=== PATIENT | female | born 1960 | race Caucasian/White ===

== ENCOUNTER 2020-08-12 20:00 | Inpatient (IN) | payer BC ==
--- NOTE | 2020-08-12 20:52 | EDM.PDOC ---
ED HPI GENERAL MEDICAL PROBLEM - General Chief Complaint: Abdominal Pain Stated Complaint: STOMACH PAIN Time Seen by Provider: 08/12/20 20:28 Source of Information: Reports: Patient, Family ( + daughter) History Limitations: Reports: No Limitations - History of Present Illness INITIAL COMMENTS - FREE TEXT/NARRATIVE: Mrs. Barbosa is a very pleasant 59-year-old woman who now presents to the ED concerned that she may have a small bowel obstruction. She states that she was diagnosed with a SBO on 07/28/2020. She states that she was admitted to [facility], where she was treated with an NG tube, being discharged home on 07/30/2020. She states that this was the first time that she had ever been diagnosed with a SBO, but she suspects she may have had undiagnosed episodes previously. She states that she started feeling gassy around noon today. She states that a ventral hernia that she has started pooching out and feeling hard. She developed sharp periumbilical pain around 16:00 this afternoon, which has been coming and going about every 5 to 10 minutes. She has had nausea, but no vomiting. No constipation or diarrhea. She states that she had a small BM this morning, but nothing since. She has not had any flatus since this afternoon. No recent fever. Here in the ED, the patient's initial BP is found to be elevated 166/73, otherwise, she is hemodynamically stable, afebrile, saturating 97% on room air. She states that she is currently asymptomatic, and she appears to be quite comfortable, in no acute distress. Between 07/30/2020 and this afternoon, the patient denies having a recent fever, chills, sore throat, ear pain, nasal or sinus congestion, cough, dyspnea, chest pain, palpitations, nausea, vomiting, constipation, diarrhea, abdominal pain, urinary symptoms, recent weight gain or weight loss, recent bloody bowel movements or black bowel movements, recent joint aches, headaches, or rashes. The patient's PCP is MATTEO Gutierres. Abdominal Pain Score (Numeric/FACES): 8 - Related Data Allergies Allergy/AdvReac Type Severity Reaction Status Date / Time amoxicillin Allergy Difficulty Verified 08/12/20 20:16 Breathing Sulfa (Sulfonamide Allergy Rash Verified 08/12/20 20:16 Antibiotics) Home Meds: Home Meds Cholecalciferol (Vitamin D3) [Vitamin D] 5,000 unit PO 08/12/20 [History] Multivit-Min/Iron/Folic Acid/K [Multi For Her Softgel] 1 each PO 08/12/20 [History] Venlafaxine [Effexor] 37.5 mg PO DAILY 08/12/20 [History] hydroCHLOROthiazide [Hydrochlorothiazide] 25 mg PO DAILY 08/12/20 [History] Past Medical History HEENT History: Reports: Impaired Vision Cardiovascular History: Reports: Blood Clots/VTE/DVT Gastrointestinal History: Reports: Bowel Obstruction, GERD Psychiatric History: Reports: Depression Endocrine/Metabolic History: Reports: Obesity/BMI 30+ Oncologic (Cancer) History: Reports: Uterine (s/p CTx, RTx, CHyst) - Infectious Disease History Infectious Disease History: Reports: Chicken Pox - Past Surgical History HEENT Surgical History: Reports: Oral Surgery (dental extractions) Female Surgical History: Reports: Hysterectomy (complete) Musculoskeletal Surgical History: Reports: Other (See Below) (Left bunionectomy) Social & Family History - Tobacco Use Tobacco Use Status *Q: Never Tobacco User - Caffeine Use Caffeine Use: Reports: Coffee - Alcohol Use Alcohol Use History: Yes Alcohol Use Frequency: Rarely - Recreational Drug Use Recreational Drug Use: No - Living Situation & Occupation Living situation: Reports: , with Spouse 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 ED EXAM, GI/ABD - Physical Exam Exam: See Below Exam Limited By: No Limitations General Appearance: Alert, WD/WN, No Apparent Distress Eyes: Bilateral: Normal Appearance, EOMI Ears: Normal External Exam, Hearing Grossly Normal Nose: Normal Inspection Throat/Mouth: Normal Inspection, Normal Lips, Normal Voice, No Airway Compromise Head: Atraumatic, Normocephalic Neck: Normal Inspection, Full Range of Motion Respiratory/Chest: No Respiratory Distress, Lungs Clear, Normal Breath Sounds, No Accessory Muscle Use Cardiovascular: Normal Peripheral Pulses, Regular Rate, Rhythm, No Gallop, No JVD, No Murmur, No Rub GI/Abdominal Exam: Normal Bowel Sounds (no rushes or tinkles), Soft, No Organomegaly, No Distention, No Abnormal Bruit, No Mass, Tender (Minimal, about a large ventral hernia) Back Exam: Normal Inspection, Full Range of Motion, NT Extremities: Normal Inspection, Normal Range of Motion, Normal Capillary Refill Neurological: Alert, Oriented, Normal Cognition, No Motor/Sensory Deficits Psychiatric: Normal Affect Skin Exam: Warm, Dry, Intact, Normal Color, No Rash Course - Vital Signs Last Recorded V/S: Last Vital Signs Temp 36.6 C 08/13/20 01:52 Pulse 59 L 08/13/20 01:52 Resp 16 08/13/20 01:52 BP 146/92 H 08/13/20 01:52 Pulse Ox 97 08/13/20 01:52 - Orders/Labs/Meds Orders: Active Orders 24 hr Category Date Time Status Gastrointestinal Tube Mgmt [RC] ASDIRECTED Care 08/12/20 23:49 Active Abdomen Pelvis w Cont [CT] Stat Exams 08/12/20 20:42 Taken Chest 1V-Tube Placement Chk NC [CR] Stat Exams 08/12/20 23:49 Taken Sodium Chloride 0.9% [Normal Saline] 1,000 ml Med 08/12/20 20:45 Active IV ASDIRECTED NG [Nasogastric Orogastric Tube Insertion] [OM.PC] Oth 08/12/20 23:49 Ordered Routine Medication Orders Hydromorphone HCl (Hydromorphone 0.5 Mg/0.5 Ml Syringe) 0.5 mg IV Q2H PRN PRN Reason: PAIN Sodium Chloride (Normal Saline) 1,000 mls @ 100 mls/hr IV ASDIRECTED ASHLEY Last Infusion: 08/13/20 06:05 Dose: 100 mls/hr Documented by: Admin: 08/13/20 06:04 Dose: 150 mls/hr Documented by: Infusion: 08/13/20 03:56 Dose: 150 mls/hr Documented by: Admin: 08/12/20 21:15 Dose: 150 mls/hr Documented by: FELI Ondansetron HCl (Ondansetron 4 Mg/2 Ml Sdv) 4 mg IV Q8H PRN PRN Reason: Nausea/Vomiting Labs: Laboratory Tests 08/12/20 08/12/20 08/13/20 Range/Units 21:00 21:00 00:22 WBC 7.39 (3.98-10.04) K/mm3 RBC 4.62 (3.98-5.22) M/mm3 Hgb 14.5 (11.2-15.7) gm/dl Hct 41.9 (34.1-44.9) % MCV 90.7 (79.4-94.8) fl MCH 31.4 (25.6-32.2) pg MCHC 34.6 (32.2-35.5) g/dl RDW Std Deviation 39.9 (36.4-46.3) fL Plt Count 149 L (182-369) K/mm3 MPV 12.4 H (9.4-12.3) fl Neutrophils % (Manual) 81 H (40-60) % Band Neutrophils % 0 (0-10) % Lymphocytes % (Manual) 16 L (20-40) % Atypical Lymphs % 0 % Monocytes % (Manual) 3 (2-10) % Eosinophils % (Manual) 0 L (0.7-5.8) % Basophils % (Manual) 0 L (0.1-1.2) Platelet Estimate Adequate RBC Morph Comment Normal Sodium 138 (136-145) mEq/L Potassium 3.6 (3.5-5.1) mEq/L Chloride 101 (98-107) mEq/L Carbon Dioxide 27 (21-32) mEq/L Anion Gap 13.6 (5-15) BUN 11 (7-18) mg/dL Creatinine 0.8 (0.55-1.02) mg/dL Est Cr Clr Drug Dosing 79.13 mL/min Estimated GFR (MDRD) > 60 (>60) mL/min BUN/Creatinine Ratio 13.8 L (14-18) Glucose 149 H (70-99) mg/dL Calcium 8.9 (8.5-10.1) mg/dL Total Bilirubin 1.1 H (0.2-1.0) mg/dL AST 41 H (15-37) U/L ALT 51 (14-59) U/L Alkaline Phosphatase 81 (46-116) U/L Total Protein 7.1 (6.4-8.2) g/dl Albumin 3.8 (3.4-5.0) g/dl Globulin 3.3 gm/dL Albumin/Globulin Ratio 1.2 (1-2) SARS-CoV-2 RNA (JAYA) Negative (NEGATIVE) Meds: Medications Generic Name Dose Route Start Last Admin Trade Name Freq PRN Reason Stop Dose Admin Hydromorphone HCl 0.5 mg 08/13/20 06:10 Hydromorphone 0.5 Mg/0.5 Ml Syringe IV Q2H PRN PAIN Sodium Chloride 1,000 mls @ 100 mls/hr 08/12/20 20:45 08/13/20 06:05 Normal Saline IV 100 mls/hr ASDIRECTED ASHLEY Infusion Ondansetron HCl 4 mg 08/13/20 06:11 Ondansetron 4 Mg/2 Ml Sdv IV Q8H PRN Nausea/Vomiting Discontinued Medications Generic Name Dose Route Start Last Admin Trade Name Freq PRN Reason Stop Dose Admin Hydromorphone HCl 0.5 mg 08/13/20 06:11 Hydromorphone 0.5 Mg/0.5 Ml Syringe IVPUSH Q2H PRN Pain - Re-Assessments/Exams Free Text/Narrative Re-Assessment/Exam: 08/12/20 20:49 As above, the patient was diagnosed with a SBO on 07/28/2020, successfully treated at [facility] with an NG tube, with the patient going home on 07/30/2020, only to redevelop similar symptoms of intermittent central abdominal pain with some nausea this afternoon. At present, she is asymptomatic, and her physical exam is grossly unremarkable, however, her history is concerning for another SBO, therefore I have ordered a work-up that includes some blood tests and a CT of the abdomen and pelvis with oral and IV contrast. She will be given IV fluid, however, at this time, she is declining an offer for both pain medication and antinausea medication. 08/12/20 22:08 The patient's CBC is remarkable for modest thrombocytopenia of 149,000, with the remainder of her CBC being unremarkable. Her CMP is remarkable for mild hyperglycemia of 149, a TBil slightly elevated at 1.1, and AST slightly elevated at 41, with an ALT normal at 51, and the remainder of her CMP being unremarkable. 08/12/20 23:44 CT of the abdomen and pelvis with oral and IV contrast is read by vRtang as: 1. Distal small bowel obstruction with large ventral hernia as above. 2. Remainder of findings described as above. The body of the report reads "Transition zone of small bowel obstruction appears to be within the abdomen without definite evidence of incarceration of bowel within hernia producing the small-bowel obstruction." 08/12/20 23:50 Test results discussed with the patient and her . As above, the patient appears to have a small bowel obstruction as the cause of her pain. I re commended placement of an NG tube and admission to the hospital. She agreed. She stated that she is not having pain at this time. 08/12/20 23:[address] Calderón, Hospitalist, at 23:51. He accepted the patient for admission to the Hospital. I will write bridge orders that will include consultation of Dr. Garcia in the morning. 08/13/20 00:39 Portable chest x-ray indicates the tip of the NG tube is in the stomach via the esophagus. Departure - Departure Time of Disposition: 23:55 Disposition: Admitted As Inpatient 66 Condition: Good Clinical Impression: Small bowel obstruction - Discharge Information *PRESCRIPTION DRUG MONITORING PROGRAM REVIEWED*: Not Applicable *COPY OF PRESCRIPTION DRUG MONITORING REPORT IN PATIENT CAITLYN: Not Applicable Sepsis Event Note (ED) - Evaluation Sepsis Screening Result: No Definite Risk - Focused Exam Vital Signs: Vital Signs Temp Pulse Resp BP Pulse Ox 08/12/20 20:20 36.5 C 73 18 166/73 H 97 - My Orders Last 24 Hours: My Active Orders 08/12/20 20:42 Abdomen Pelvis w Cont [CT] Stat 08/12/20 20:45 Sodium Chloride 0.9% [Normal Saline] 1,000 ml IV ASDIRECTED 08/12/20 23:49 Gastrointestinal Tube Mgmt [RC] ASDIRECTED Chest 1V-Tube Placement Chk NC [CR] Stat NG [Nasogastric Orogastric Tube Insertion] [OM.PC] Routine - Assessment/Plan Last 24 Hours: My Active Orders 08/12/20 20:42 Abdomen Pelvis w Cont [CT] Stat 08/12/20 20:45 Sodium Chloride 0.9% [Normal Saline] 1,000 ml IV ASDIRECTED 08/12/20 23:49 Gastrointestinal Tube Mgmt [RC] ASDIRECTED Chest 1V-Tube Placement Chk NC [CR] Stat NG [Nasogastric Orogastric Tube Insertion] [OM.PC] Routine
[2020-08-12] MEDS: Sodium Chloride 0.9% 1,000 ML IV SCH (21:15)
[2020-08-13] MEDS: Sodium Chloride 0.9% 1,000 ML IV SCH (06:04)
[2020-08-13] MEDS ORDERED: HYDROmorphone 0.5 MG/0.5 ML Syringe IV PRN (06:10)
[2020-08-13] MEDS ORDERED: Ondansetron 4 MG/2 ML SDV IV PRN (06:11)
[2020-08-13] MEDS ORDERED: HYDROmorphone 0.5 MG/0.5 ML Syringe IVPUSH PRN (06:11)
[2020-08-13] MEDS ORDERED: oxyCODONE 5 MG Tab PO PRN (08:50)
[2020-08-13] MEDS ORDERED: Acetaminophen 325 MG Tab PO PRN (08:50)
[2020-08-13] MEDS ORDERED: Morphine 2 MG/ML SYRINGE IVPUSH PRN (08:50)
[2020-08-13] MEDS ORDERED: Lactated Ringers 1,000 ML IV SCH (09:00)
--- NOTE | 2020-08-13 09:05 | PCM.HP.2 ---
H&P History of Present Illness - General Date of Service: 08/13/20 Admit Problem/Dx: Admission Diagnosis/Problem Admission Diagnosis/Problem Small bowel obstruction Source of Information: Patient - History of Present Illness Initial Comments - Free Text/Narative: Patient is a 59-year-old female with a history of hypertension and a history of small bowel obstruction who presented to the ER due to abdominal pain and nausea. As per patient, she started to have lower abdominal pain at about 2 PM yesterday afternoon which has been gradually worsening. The pain is intermittent, sharp in nature and 2-8 out of 10 in severity. She had a small bowel movement yesterday morning and watery bowel movements last night and this morning. She had small bowel obstruction on July 28, 2020 for which she was admitted to the hospital in [place] and discharged on July 30, 2020. During that time she was treated with NG tube to suction etc. In the ER, CT abdomen showed small bowel obstruction. When I saw this patient, other than the symptoms mentioned above, she denies headache, dizziness, chest pain, shortness of breath, fever, chills, or dysuria. She underwent hysterectomy 15 years ago because of uterine cancer for which she received chemo and radiation therapy. Abdominal Pain Score (Numeric/FACES): 2 - Related Data Allergies/Adverse Reactions: Allergies Allergy/AdvReac Type Severity Reaction Status Date / Time amoxicillin Allergy Difficulty Verified 08/12/20 20:16 Breathing Sulfa (Sulfonamide Allergy Rash Verified 08/12/20 20:16 Antibiotics) Home Medications: Home Meds Cholecalciferol (Vitamin D3) [Vitamin D] 5,000 unit PO 08/12/20 [History] Multivit-Min/Iron/Folic Acid/K [Multi For Her Softgel] 1 each PO 08/12/20 [History] Venlafaxine [Effexor] 37.5 mg PO DAILY 08/12/20 [History] hydroCHLOROthiazide [Hydrochlorothiazide] 25 mg PO DAILY 08/12/20 [History] Past Medical History HEENT History: Reports: Impaired Vision, Other (See Below) Other HEENT History: Wears glasses Cardiovascular History: Reports: Blood Clots/VTE/DVT Respiratory History: Reports: None Gastrointestinal History: Reports: Bowel Obstruction, GERD Other Gastrointestinal History: small bowel obstruction Genitourinary History: Reports: None [employer] 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[employer]IC History: Reports: Musculoskeletal History: Reports: None Neurological History: Reports: None Psychiatric History: Reports: Depression Endocrine/Metabolic History: Reports: Obesity/BMI 30+ Hematologic History: Reports: None Immunologic History: Reports: None Oncologic (Cancer) History: Reports: Uterine Other Oncologic History: 14 years ago Dermatologic History: Reports: None - Infectious Disease History Infectious Disease History: Reports: Chicken Pox - Past Surgical History Head Surgeries/Procedures: Reports: None HEENT Surgical History: Reports: Oral Surgery GI Surgical History: Reports: None, Hernia, Abdominal Female Surgical History: Reports: Hysterectomy Musculoskeletal Surgical History: Reports: Other (See Below) Social & Family History - Family History Family Medical History: No Pertinent Family History (Denies genetic diseases in family) Cardiac: Reports: Hypertension Endocrine/Metabolic: Reports: Diabetes, type II - Tobacco Use Tobacco Use Status *Q: Never Tobacco User Second Hand Smoke Exposure: No - Caffeine Use Caffeine Use: Reports: Coffee - Recreational Drug Use Recreational Drug Use: No - Living Situation & Occupation Living situation: Reports: , with Spouse 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 All other systems were reviewed and are negative.) Exam - Exam Exam: See Below - Vital Signs Vital Signs: Last Vital Signs Temp 36.6 C 08/13/20 01:52 Pulse 58 L 08/13/20 07:29 Resp 16 08/13/20 07:29 BP 122/78 08/13/20 07:29 Pulse Ox 97 08/13/20 07:29 Weight: 140.614 kg - Exam General: Alert, Oriented, Cooperative HEENT: Conjunctiva Clear, EOMI, Pupils Equal, Pupils Reactive Neck: Supple, Full Range of Motion Lungs: Clear to Auscultation, Normal Respiratory Effort Cardiovascular: Regular Rate, Regular Rhythm, Normal S1, Normal S2 GI/Abdominal Exam: Normal Bowel Sounds, Soft, Distended (Due to ventral hernia and obesity), Tender (Mild tenderness over the low abdomen.) Extremities: Normal Inspection, Normal Range of Motion, Non-Tender, No Pedal Edema Skin: Warm, Dry, Intact Neurological: Strength Equal Bilateral, Normal Speech, Normal Tone, Sensation Intact Neuro Extensive - Mental Status: Alert, Oriented x3, Normal Mood/Affect Psychiatric: Normal Mood - Patient Data Lab Results Last 24 hrs: Laboratory Results - last 24 hr 08/12/20 08/12/20 08/13/20 Range/Units 21:00 21:00 00:22 WBC 7.39 (3.98-10.04) K/mm3 RBC 4.62 (3.98-5.22) M/mm3 Hgb 14.5 (11.2-15.7) gm/dl Hct 41.9 (34.1-44.9) % MCV 90.7 (79.4-94.8) fl MCH 31.4 (25.6-32.2) pg MCHC 34.6 (32.2-35.5) g/dl RDW Std Deviation 39.9 (36.4-46.3) fL Plt Count 149 L (182-369) K/mm3 MPV 12.4 H (9.4-12.3) fl Neutrophils % (Manual) 81 H (40-60) % Band Neutrophils % 0 (0-10) % Lymphocytes % (Manual) 16 L (20-40) % Atypical Lymphs % 0 % Monocytes % (Manual) 3 (2-10) % Eosinophils % (Manual) 0 L (0.7-5.8) % Basophils % (Manual) 0 L (0.1-1.2) Platelet Estimate Adequate RBC Morph Comment Normal Sodium 138 (136-145) mEq/L Potassium 3.6 (3.5-5.1) mEq/L Chloride 101 (98-107) mEq/L Carbon Dioxide 27 (21-32) mEq/L Anion Gap 13.6 (5-15) BUN 11 (7-18) mg/dL Creatinine 0.8 (0.55-1.02) mg/dL Est Cr Clr Drug Dosing 79.13 mL/min Estimated GFR (MDRD) > 60 (>60) mL/min BUN/Creatinine Ratio 13.8 L (14-18) Glucose 149 H (70-99) mg/dL Calcium 8.9 (8.5-10.1) mg/dL Total Bilirubin 1.1 H (0.2-1.0) mg/dL AST 41 H (15-37) U/L ALT 51 (14-59) U/L Alkaline Phosphatase 81 (46-116) U/L Total Protein 7.1 (6.4-8.2) g/dl Albumin 3.8 (3.4-5.0) g/dl Globulin 3.3 gm/dL Albumin/Globulin Ratio 1.2 (1-2) SARS-CoV-2 RNA (JAYA) Negative (NEGATIVE) 08/13/20 Range/Units 05:42 WBC (3.98-10.04) K/mm3 RBC (3.98-5.22) M/mm3 Hgb (11.2-15.7) gm/dl Hct (34.1-44.9) % MCV (79.4-94.8) fl MCH (25.6-32.2) pg MCHC (32.2-35.5) g/dl RDW Std Deviation (36.4-46.3) fL Plt Count (182-369) K/mm3 MPV (9.4-12.3) fl Neutrophils % (Manual) (40-60) % Band Neutrophils % (0-10) % Lymphocytes % (Manual) (20-40) % Atypical Lymphs % % Monocytes % (Manual) (2-10) % Eosinophils % (Manual) (0.7-5.8) % Basophils % (Manual) (0.1-1.2) Platelet Estimate RBC Morph Comment Sodium 143 (136-145) mEq/L Potassium 3.0 L (3.5-5.1) mEq/L Chloride 106 (98-107) mEq/L Carbon Dioxide 27 (21-32) mEq/L Anion Gap 13.0 (5-15) BUN 8 (7-18) mg/dL Creatinine 0.6 (0.55-1.02) mg/dL Est Cr Clr Drug Dosing 105.51 mL/min Estimated GFR (MDRD) > 60 (>60) mL/min BUN/Creatinine Ratio 13.3 L (14-18) Glucose 105 H (70-99) mg/dL Calcium 8.4 L (8.5-10.1) mg/dL Total Bilirubin (0.2-1.0) mg/dL AST (15-37) U/L ALT (14-59) U/L Alkaline Phosphatase (46-116) U/L Total Protein (6.4-8.2) g/dl Albumin (3.4-5.0) g/dl Globulin gm/dL Albumin/Globulin Ratio (1-2) SARS-CoV-2 RNA (JAYA) (NEGATIVE) Result Diagrams: 08/12/20 21:00 08/13/20 05:42 Sepsis Event Note - Evaluation Sepsis Screening Result: No Definite Risk - Focused Exam Vital Signs: Vital Signs Temp Pulse Pulse Resp BP BP Pulse Ox 08/13/20 07:29 58 L 16 122/78 97 08/13/20 01:52 36.6 C 59 L 16 146/92 H 97 08/13/20 01:30 68 18 148/70 H 96 Problem List Initiated/Reviewed/Updated: Yes Orders Last 24hrs: Active Orders 24 hr Category Date Time Status Patient Status [ADT] Routine ADT 08/13/20 00:27 Active Ambulate [RC] 09,13,17,20 Care 08/13/20 06:13 Active EKG Documentation Completion [RC] ROUTINE Care 08/13/20 08:50 Ordered Intake and Output [RC] QSHIFT Care 08/13/20 08:51 Ordered NG [Gastrointestinal Tube Mgmt] [RC] BID Care 08/13/20 06:10 Active Notify Provider Consults [RC] ASDIRECTED Care 08/13/20 06:14 Active Oxygen Therapy [RC] PRN Care 08/13/20 08:51 Ordered Up to Chair [RC] ASDIRECTED Care 08/13/20 08:50 Ordered VTE/DVT Education [RC] PER UNIT ROUTINE Care 08/13/20 08:51 Ordered Vital Signs [RC] Q4H Care 08/13/20 08:51 Ordered Consult to Physician [CONS] Routine Cons 08/13/20 06:14 Active NPO [Nothing Per Oral Diet] [DIET] Diet 08/13/20 Lunch Active Nothing per Oral Now Diet [DIET] Diet 08/13/20 Breakfast Ordered Abdomen Pelvis w Cont [CT] Stat Exams 08/12/20 20:42 Taken Chest 1V-Tube Placement Chk NC [CR] Stat Exams 08/12/20 23:49 Taken CBC WITH AUTO DIFF [HEME] DAILY Lab 08/14/20 05:00 Ordered CBC WITH AUTO DIFF [HEME] DAILY Lab 08/15/20 05:00 Ordered CBC WITH AUTO DIFF [HEME] DAILY Lab 08/16/20 05:00 Ordered CBC WITH AUTO DIFF [HEME] DAILY Lab 08/17/20 05:00 Ordered CBC WITH AUTO DIFF [HEME] DAILY Lab 08/18/20 05:00 Ordered COMPREHENSIVE METABOLIC PN,CMP [CHEM] DAILY Lab 08/14/20 05:00 Ordered COMPREHENSIVE METABOLIC PN,CMP [CHEM] DAILY Lab 08/15/20 05:00 Ordered COMPREHENSIVE METABOLIC PN,CMP [CHEM] DAILY Lab 08/16/20 05:00 Ordered COMPREHENSIVE METABOLIC PN,CMP [CHEM] DAILY Lab 08/17/20 05:00 Ordered COMPREHENSIVE METABOLIC PN,CMP [CHEM] DAILY Lab 08/18/20 05:00 Ordered MAGNESIUM [CHEM] DAILY Lab 08/14/20 05:00 Ordered Acetaminophen [TylenoL] Med 08/13/20 08:50 Ordered 650 mg PO Q6H PRN Enoxaparin [Lovenox] Med 08/13/20 09:00 Ordered 40 mg SUBCUT DAILY HYDROmorphone [Dilaudid] Med 08/13/20 06:10 Stop Req 0.5 mg IV Q2H PRN Lactated Ringers [Ringers, Lactated] 1,000 ml Med 08/13/20 09:00 Ordered IV ASDIRECTED Morphine Med 08/13/20 08:50 Ordered 2 mg IVPUSH Q4H PRN Ondansetron [Zofran] Med 08/13/20 06:11 Active 4 mg IV Q8H PRN Sodium Chloride 0.9% [Normal Saline] 1,000 ml Med 08/12/20 20:45 Stop Req IV ASDIRECTED Venlafaxine [Effexor] Med 08/13/20 09:00 Ordered 37.5 mg PO DAILY hydroCHLOROthiazide Med 08/13/20 09:00 Ordered 25 mg PO DAILY oxyCODONE Med 08/13/20 08:50 Ordered 5 mg PO Q4H PRN NG [Nasogastric Orogastric Tube Insertion] [OM.PC] Oth 08/12/20 23:49 Ordered Routine Code Status [Resuscitation Status] Routine Resus Stat 08/13/20 06:12 Ordered Medication Orders Acetaminophen (Acetaminophen 325 Mg Tab) 650 mg PO Q6H PRN PRN Reason: Pain (Mild 1-3)/fever Enoxaparin Sodium (Enoxaparin 40 Mg/0.4 Ml Syringe) 40 mg SUBCUT DAILY ASHLEY Hydromorphone HCl (Hydromorphone 0.5 Mg/0.5 Ml Syringe) 0.5 mg IV Q2H PRN PRN Reason: PAIN Sodium Chloride (Normal Saline) 1,000 mls @ 100 mls/hr IV ASDIRECTED ASHLEY Last Infusion: 08/13/20 06:05 Dose: 100 mls/hr Documented by: Admin: 08/13/20 06:04 Dose: 150 mls/hr Documented by: Infusion: 08/13/20 03:56 Dose: 150 mls/hr Documented by: Admin: 08/12/20 21:15 Dose: 150 mls/hr Documented by: FELI Lactated Ringer's (Ringers, Lactated) 1,000 mls @ 100 mls/hr IV ASDIRECTED ASLHEY Morphine Sulfate (Morphine 2 Mg/Ml Syringe) 2 mg IVPUSH Q4H PRN PRN Reason: Pain (severe 7-10) Stop: 08/14/20 08:53 Ondansetron HCl (Ondansetron 4 Mg/2 Ml Sdv) 4 mg IV Q8H PRN PRN Reason: Nausea/Vomiting Oxycodone HCl (Oxycodone 5 Mg Tab) 5 mg PO Q4H PRN PRN Reason: Pain (moderate 4-6) Assessment/Plan Comment:: Patient is a 59-year-old female with a history of hypertension and a history of small bowel obstruction who presented to the ER due to abdominal pain and nausea. Assessment and plan: Small bowel obstruction Ventral hernia -transition zone within the abdomen, no incarceration -hx of sBO on 07/28/2020 -Had a hysterectomy 15 years ago for uterine cancer -NG tube to suction -N.p.o. -Pain management including IV morphine -IV fluid -Surgical Dr. Garcia consult. With the really appreciate it Morbid obesity -BMI 45.8 -Follow with the PCP HTN -continue HCTZ -Hydralazine as needed Thrombocytopenia -No evidence of bleeding -Repeat the platelets in morning Hypokalemia -Replete and repeat Elevation of liver enzymes -AST 41, ALT 51, Tbil 1.1 and alk phos 81 -Repeat the liver function in morning -I would do more work-up if not improved DVT prophylaxis: Lovenox CODE STATUS: Full Disposition: 2 or 3 days - Mortality Measure Prognosis:: Good
[2020-08-13] MEDS ORDERED: hydrALAZINE 20 MG/ML SDV IVPUSH PRN (09:12)
[2020-08-13] MEDS ORDERED: Promethazine 12.5 MG in Sodium Chloride 0.9% 50 ML IV PRN (09:16)
--- NOTE | 2020-08-13 09:27 | CT ---
CT abdomen and pelvis Technique: Multiple axial sections were obtained from above the dome of the diaphragm inferiorly through the pubic symphysis. Intravenous and oral contrast was utilized. Delayed images were also obtained from above the kidneys inferiorly through the pubic symphysis. Reconstructed coronal and sagittal images were obtained. Comparison: Prior CT abdomen and pelvis exam dated 10/24/19. Findings: Visualized lung bases show slight scattered areas of scarring. Liver contains no focal parenchymal abnormality. A calcified gallstone is seen measuring about 1.5 cm. Spleen size is normal. Adrenal glands show no nodule. Pancreas appears within normal limits. Kidneys show symmetric contrast enhancement. A nonobstructing calculus is noted within the lower right kidney measuring about 8 mm. Delayed images show contrast excretion into the ureters and bladder. Abdominal aorta shows no aneurysm. No retroperitoneal adenopathy is seen. Anterior abdominal hernia is noted containing portions of the colon and terminal ileum which show no dilatation. There is slightly dilated small bowel being seen. This is most likely due to a small area of nonvisualized adhesion. Minimal fluid is seen within the pelvis. Small amount of fluid within the colon is seen which most likely is incidental. Bone window settings were reviewed which show scattered degenerative change within the spine with areas of vacuum disc phenomena within the thoracic and lower lumbar spine. Impression: 1. Mildly dilated small bowel loop compatible with mild obstruction secondary to a nonvisualized adhesion. 2. Anterior abdominal wall hernia containing nondilated colon and terminal ileum which show no dilatation. 3. Fairly large calcified gallstone within the gallbladder. 8 mm stone within the lower right kidney. 4. Other findings as noted above which are stable. Diagnostic code #3 I agree with preliminary report from [facility], finalized on 08/13/20, 12:40 AM CDT, code 1
[2020-08-13] MEDS: Hydrochlorothiazide 25 MG Tab PO SCH (09:33)
[2020-08-13] MEDS: Venlafaxine 37.5 MG Tab PO SCH (09:33)
[2020-08-13] MEDS: Enoxaparin 40 MG/0.4 ML Syringe SUBCUT SCH (09:33)
--- NOTE | 2020-08-13 09:56 | CR ---
Chest: Frontal view of the chest was obtained in AP projection. Comparison: No prior chest x-rays available, prior chest CT study of 12/31/09 is available. Heart size and mediastinum are within normal limits for technique. Nasogastric tube is seen with tip crossing the gastroesophageal junction into the stomach. Lungs are clear with no acute parenchymal change. Bony structures are grossly intact. Impression: 1. Tip of endotracheal tube within the stomach. 2. Nothing acute is otherwise seen on frontal chest x-ray. Diagnostic code #2
[2020-08-13] MEDS ORDERED: Diatrizoate Meglumine/Diatrizoate Sodium 37% 120 ML Bottle PO ONE (09:58)
--- NOTE | 2020-08-13 10:08 | PCM.CONS ---
H&P History of Present Illness - General Date of Service: 08/13/20 Admit Problem/Dx: Admission Diagnosis/Problem Admission Diagnosis/Problem Small bowel obstruction Source of Information: Patient History Limitations: Reports: No Limitations - History of Present Illness Initial Comments - Free Text/Narative: Mrs. Barbosa is a 59 yo woman who was admitted overnight with small bowel obstruction. She had her first occurrence of SBO a little over two weeks ago and was hospitalized in [place] for two days and managed non-operatively. She has been having abdominal pain for a day, but last had a bowel movement yesterday morning and reports some flatus this morning. She has an NG tube in for decompression with only a few hundred mLs out of fairly light.clear fluid. Her abdomen is soft and nontender. She is morbidly obese ( BMI > 45) with large incisional hernia, though this does not appear to be the etiology of obstruction on CT scan. Aside for mild electrolyte abnormalities expected with SBO like hypokalemia, her labs look okay. Abdominal Pain Score (Numeric/FACES): 2 - Related Data Allergies/Adverse Reactions: Allergies Allergy/AdvReac Type Severity Reaction Status Date / Time amoxicillin Allergy Difficulty Verified 08/12/20 20:16 Breathing Sulfa (Sulfonamide Allergy Rash Verified 08/12/20 20:16 Antibiotics) Home Medications: Home Meds Multivit-Min/Iron/Folic Acid/K [Multi For Her Softgel] 1 each PO DAILY 08/12/20 [History] Venlafaxine [Effexor] 37.5 mg PO DAILY 08/12/20 [History] hydroCHLOROthiazide [Hydrochlorothiazide] 25 mg PO DAILY 08/12/20 [History] Aspirin [Ecotrin EC] 325 mg PO DAILY 08/13/20 [History] Cholecalciferol (Vitamin D3) [Vitamin D3] 2,000 unit PO DAILY 08/13/20 [History] Past Medical History HEENT History: Reports: Impaired Vision, Other (See Below) Other HEENT History: Wears glasses Cardiovascular History: Reports: Blood Clots/VTE/DVT Respiratory History: Reports: None Gastrointestinal History: Reports: Bowel Obstruction, GERD Other Gastrointestinal History: small bowel obstruction Genitourinary History: Reports: None 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: Musculoskeletal History: Reports: None Neurological History: Reports: None Psychiatric History: Reports: Depression Endocrine/Metabolic History: Reports: Obesity/BMI 30+ Hematologic History: Reports: None Immunologic History: Reports: None Oncologic (Cancer) History: Reports: Uterine Other Oncologic History: 14 years ago Dermatologic History: Reports: None - Infectious Disease History Infectious Disease History: Reports: Chicken Pox - Past Surgical History Head Surgeries/Procedures: Reports: None HEENT Surgical History: Reports: Oral Surgery GI Surgical History: Reports: None, Hernia, Abdominal Female Surgical History: Reports: Hysterectomy Musculoskeletal Surgical History: Reports: Other (See Below) Social & Family History - Family History Family Medical History: No Pertinent Family History (Denies genetic diseases in family) Cardiac: Reports: Hypertension Endocrine/Metabolic: Reports: Diabetes, type II - Tobacco Use Tobacco Use Status *Q: Never Tobacco User Second Hand Smoke Exposure: No - Caffeine Use Caffeine Use: Reports: Coffee - Recreational Drug Use Recreational Drug Use: No - Living Situation & Occupation Living situation: Reports: , with Spouse 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[employer]) H&P Review of Systems - Review of Systems: Review Of Systems: See Below General: Reports: No Symptoms HEENT: Reports: No Symptoms Pulmonary: Reports: No Symptoms Cardiovascular: Reports: No Symptoms Gastrointestinal: Reports: Abdominal Pain, Flatus, Nausea Genitourinary: Reports: No Symptoms Musculoskeletal: Reports: No Symptoms Skin: Reports: No Symptoms Psychiatric: Reports: No Symptoms Neurological: Reports: No Symptoms Hematologic/Lymphatic: Reports: No Symptoms Immunologic: Reports: No Symptoms Exam - Exam Exam: See Below - Vital Signs Vital Signs: Last Vital Signs Temp 36.6 C 08/13/20 01:52 Pulse 58 L 08/13/20 07:29 Resp 16 08/13/20 07:29 BP 122/78 08/13/20 07:29 Pulse Ox 97 08/13/20 07:29 Weight: 140.614 kg - Exam General: Alert, Oriented, Cooperative HEENT: Conjunctiva Clear Neck: Supple Lungs: Normal Respiratory Effort Cardiovascular: Regular Rate GI/Abdominal Exam: Soft, Non-Tender Skin: Warm, Dry Neuro Extensive - Mental Status: Alert, Oriented x3 Psychiatric: Normal Mood - Patient Data Lab Results Last 24 hrs: Laboratory Results - last 24 hr 08/12/20 08/12/20 08/13/20 Range/Units 21:00 21:00 00:22 WBC 7.39 (3.98-10.04) K/mm3 RBC 4.62 (3.98-5.22) M/mm3 Hgb 14.5 (11.2-15.7) gm/dl Hct 41.9 (34.1-44.9) % MCV 90.7 (79.4-94.8) fl MCH 31.4 (25.6-32.2) pg MCHC 34.6 (32.2-35.5) g/dl RDW Std Deviation 39.9 (36.4-46.3) fL Plt Count 149 L (182-369) K/mm3 MPV 12.4 H (9.4-12.3) fl Neutrophils % (Manual) 81 H (40-60) % Band Neutrophils % 0 (0-10) % Lymphocytes % (Manual) 16 L (20-40) % Atypical Lymphs % 0 % Monocytes % (Manual) 3 (2-10) % Eosinophils % (Manual) 0 L (0.7-5.8) % Basophils % (Manual) 0 L (0.1-1.2) Platelet Estimate Adequate RBC Morph Comment Normal Sodium 138 (136-145) mEq/L Potassium 3.6 (3.5-5.1) mEq/L Chloride 101 (98-107) mEq/L Carbon Dioxide 27 (21-32) mEq/L Anion Gap 13.6 (5-15) BUN 11 (7-18) mg/dL Creatinine 0.8 (0.55-1.02) mg/dL Est Cr Clr Drug Dosing 79.13 mL/min Estimated GFR (MDRD) > 60 (>60) mL/min BUN/Creatinine Ratio 13.8 L (14-18) Glucose 149 H (70-99) mg/dL Calcium 8.9 (8.5-10.1) mg/dL Total Bilirubin 1.1 H (0.2-1.0) mg/dL AST 41 H (15-37) U/L ALT 51 (14-59) U/L Alkaline Phosphatase 81 (46-116) U/L Total Protein 7.1 (6.4-8.2) g/dl Albumin 3.8 (3.4-5.0) g/dl Globulin 3.3 gm/dL Albumin/Globulin Ratio 1.2 (1-2) SARS-CoV-2 RNA (JAYA) Negative (NEGATIVE) 08/13/20 Range/Units 05:42 WBC (3.98-10.04) K/mm3 RBC (3.98-5.22) M/mm3 Hgb (11.2-15.7) gm/dl Hct (34.1-44.9) % MCV (79.4-94.8) fl MCH (25.6-32.2) pg MCHC (32.2-35.5) g/dl RDW Std Deviation (36.4-46.3) fL Plt Count (182-369) K/mm3 MPV (9.4-12.3) fl Neutrophils % (Manual) (40-60) % Band Neutrophils % (0-10) % Lymphocytes % (Manual) (20-40) % Atypical Lymphs % % Monocytes % (Manual) (2-10) % Eosinophils % (Manual) (0.7-5.8) % Basophils % (Manual) (0.1-1.2) Platelet Estimate RBC Morph Comment Sodium 143 (136-145) mEq/L Potassium 3.0 L (3.5-5.1) mEq/L Chloride 106 (98-107) mEq/L Carbon Dioxide 27 (21-32) mEq/L Anion Gap 13.0 (5-15) BUN 8 (7-18) mg/dL Creatinine 0.6 (0.55-1.02) mg/dL Est Cr Clr Drug Dosing 105.51 mL/min Estimated GFR (MDRD) > 60 (>60) mL/min BUN/Creatinine Ratio 13.3 L (14-18) Glucose 105 H (70-99) mg/dL Calcium 8.4 L (8.5-10.1) mg/dL Total Bilirubin (0.2-1.0) mg/dL AST (15-37) U/L ALT (14-59) U/L Alkaline Phosphatase (46-116) U/L Total Protein (6.4-8.2) g/dl Albumin (3.4-5.0) g/dl Globulin gm/dL Albumin/Globulin Ratio (1-2) SARS-CoV-2 RNA (JAYA) (NEGATIVE) Result Diagrams: 08/12/20 21:00 08/13/20 05:42 Sepsis Event Note - Evaluation Sepsis Screening Result: No Definite Risk - Focused Exam Vital Signs: Vital Signs Temp Pulse Pulse Resp BP BP Pulse Ox 08/13/20 07:29 58 L 16 122/78 97 08/13/20 01:52 36.6 C 59 L 16 146/92 H 97 08/13/20 01:30 68 18 148/70 H 96 Consult PN Assessment/Plan Procedures: Procedures ASSAY GLUCOSE BLOOD QUANT (12/01/17) ASSAY OF FREE THYROXINE (03/19/20) ASSAY THYROID STIM HORMONE (03/19/20) COMPLETE CBC AUTOMATED (03/19/20) COMPLETE CBC W/AUTO DIFF WBC (02/19/19) COMPREHEN METABOLIC PANEL (03/19/20) CT ABD & PELVIS W/O CONTRAST (10/24/19) CULTURE OTHR SPECIMN AEROBIC (10/18/19) DXA BONE DENSITY AXIAL (06/16/17) EXTREMITY STUDY (12/02/17) GLYCOSYLATED HEMOGLOBIN TEST (03/19/20) IMMUNOASSAY TUMOR CA 125 (06/24/14) LIPID PANEL (03/19/20) METABOLIC PANEL TOTAL CA (02/19/19) MRI JNT OF LWR EXTRE W/O DYE (07/05/13) ROUTINE VENIPUNCTURE (03/19/20) SCR MAMMO BI INCL CAD (06/16/17) URINALYSIS AUTO W/SCOPE (03/19/20) URINE CULTURE/COLONY COUNT (03/19/20) Problem List Initiated/Reviewed/Updated: Yes My Orders Last 24 Hours: My Active Orders 08/13/20 09:59 Communication Order [RC] ASDIRECTED 08/13/20 19:00 Abdomen 1V Upright [CR] Routine Plan: Recurrent small bowel obstruction. Exam, labs, imaging are not worrisome, and she is already showing sings of resolution like flatus after NG decompression overnight. Recommend gastrografin challenge: 100 mL gastrografin with 50 mL saline via NG with follow up abdominal plain film 8 hours later. If contrast reaches cecum, NG can be removed and diet can be advanced to clears. If not, laparoscopic adhesio lysis will be considered.
[2020-08-13] MEDS: DEXTROSE 5% IV SCH (10:35)
[2020-08-13] MEDS: KCL IV SCH (10:35)
[2020-08-13] MEDS: LACT RINGERS IV SCH (10:35)
[2020-08-13] MEDS: POTASSIUM CHLORIDE IV SCH (10:35)
--- NOTE | 2020-08-13 19:31 | PCM.SN.2 ---
- Free Text/Narrative Note: Gastrografin challenge complete- no contrast seen in small bowel on plain film. Patient has had NG clamped since administration of gastrografin this morning, with some watery bowel movements and continued flatus. No pain, nausea, or distention. NG removed this evening. Recommend clear liquid diet, advance as tolerated in AM if continuing to do well.
--- NOTE | 2020-08-13 19:35 | CR ---
Abdomen: Single upright view of the abdomen was obtained. Comparison: Prior CT abdomen and pelvis exam performed on 08/12/20. Nasogastric tube is seen. Tip lies within the stomach. Contrast is noted within the bladder from prior CT exam. Contrast is also noted in the colon which is within an abdominal wall hernia. Calcified gallstone is noted. Calcified right renal stone is seen. No free air is noted. Bony structures appear within normal limits for the patient's age. Impression: 1. Contrast is seen within the colon which is located within an abdominal wall hernia. 2. Contrast also noted within the urinary bladder. 3. Satisfactory position of nasogastric tube. 4. Other findings as noted above which are felt to be nonacute. Diagnostic code #2
[2020-08-14] MEDS: DEXTROSE 5% IV SCH (00:02)
[2020-08-14] MEDS: LACT RINGERS IV SCH (00:02)
[2020-08-14] MEDS: POTASSIUM CHLORIDE IV SCH (00:02)
[2020-08-14] MEDS: KCL IV SCH (00:02)
[2020-08-14] MEDS: Hydrochlorothiazide 25 MG Tab PO SCH (08:39)
[2020-08-14] MEDS: Venlafaxine 37.5 MG Tab PO SCH (08:39)
[2020-08-14] MEDS: Enoxaparin 40 MG/0.4 ML Syringe SUBCUT SCH (08:39)
--- NOTE | 2020-08-14 08:54 | PCM.SN.2 ---
- Free Text/Narrative Note: S: slept well overnight, no issues, passing flatus and tolerating diet. O: AF-VSS abdomen nontender A: small bowel obstruction, resolved P: Appropriate for discharge on regular diet. No need for surgery clinic follow up.
--- NOTE | 2020-08-14 10:12 | PCM.DCSUM1 ---
Discharge Summary - Hospital Course Free Text/Narrative:: Assessment and plan: Small bowel obstruction Ventral hernia -transition zone within the abdomen, no incarceration -hx of sBO on 07/28/2020 -Had a hysterectomy 15 years ago for uterine cancer - Dr. Garcia has been on board -NG tube was removed yesterday afternoon -Patient tolerated regular food -Pain management including IV morphine -IV fluid -Dr. Garcia cleared to discharge this patient to home today. Morbid obesity -BMI 45.8 -Follow with the PCP HTN -continue HCTZ -Hydralazine as needed Thrombocytopenia -169 today -No evidence of bleeding -Repeat the platelets in morning Hypokalemia -Replete and repeat Elevation of liver enzymes -AST 41, ALT 51, Tbil 1.1 and alk phos 81 -Repeat the liver function in morning -I would do more work-up if not improved Today patient does not have any complaints. Denies nausea, vomiting, abdominal pain, chest pain, shortness of breath, dysuria, headache or dizziness. Patient has mild bradycardia. All other vital signs are acceptable. Magnesium and potassium are within normal limits. She can walk without any problems. She will be discharged to home to follow with the PCP within [address] Garcia in 1 week. Repeat CBC and CMP within [address] approval from MD. Call PCP for medical issues. Diagnosis: Stroke: No - Discharge Data Discharge Date: 08/14/20 Discharge Disposition: Home, Self-Care 01 Condition: Good - Referral to Home Health Primary Care Physician: Andreea Villanueva PA-C - Patient Summary/Data Consults: Consultations 08/13/20 06:14 Consult to Physician [CONS] Routine Recommended Follow-up Testing/Procedures: follow with the PCP within [address] Garcia in 1 week. Repeat CBC and CMP within [address] approval from MD. Call PCP for medical issues. - Patient Instructions Diet: Regular Diet as Tolerated Activity: As Tolerated Driving: Do Not Drive - Discharge Plan *PRESCRIPTION DRUG MONITORING PROGRAM REVIEWED*: Not Applicable *COPY OF PRESCRIPTION DRUG MONITORING REPORT IN PATIENT [place]ITLYN: Not Applicable Home Medications: Home Meds Multivit-Min/Iron/Folic Acid/K [Multi For Her Softgel] 1 each PO DAILY 08/12/20 [History] Venlafaxine [Effexor] 37.5 mg PO DAILY 08/12/20 [History] hydroCHLOROthiazide [Hydrochlorothiazide] 25 mg PO DAILY 08/12/20 [History] Aspirin 325 mg PO DAILY 08/13/20 [History] Cholecalciferol (Vitamin D3) [Vitamin D3] 2,000 unit PO DAILY 08/13/20 [History] Forms: ED Department Discharge Referrals: Andreea Villanueva PA-C [Primary Care Provider] - (within one week) see Dr. Garcia, in one week [Other] - Discharge Summary/Plan Comment DC Time >30 min.: Yes - General Info Date of Service: 08/14/20 Admission Dx/Problem (Free Text: Admission Diagnosis/Problem Admission Diagnosis/Problem Small bowel obstruction Subjective Update: Refer to hospital course - Review of Systems General: Reports: No Symptoms HEENT: Reports: No Symptoms Pulmonary: Reports: No Symptoms Cardiovascular: Reports: No Symptoms Gastrointestinal: Reports: No Symptoms Genitourinary: Reports: No Symptoms Musculoskeletal: Reports: No Symptoms Skin: Reports: No Symptoms Neurological: Reports: No Symptoms Psychiatric: Reports: No Symptoms - Patient Data Vitals - Most Recent: Last Vital Signs Temp 35.8 C L 08/14/20 07:23 Pulse 54 L 08/14/20 07:23 Resp 16 08/14/20 07:23 BP 107/89 08/14/20 07:23 Pulse Ox 99 08/14/20 07:23 Weight - Most Recent: 139.843 kg I&O - Last 24 hours: Intake & Output 08/13/20 08/14/20 08/14/20 22:59 06:59 14:59 Intake Total 1479 1330 Balance 1479 1330 Lab Results - Last 24 hrs: Laboratory Results - last 24 hr 08/14/20 08/14/20 Range/Units 06:15 06:15 WBC 4.40 (3.98-10.04) K/mm3 RBC 4.45 (3.98-5.22) M/mm3 Hgb 13.8 (11.2-15.7) gm/dl Hct 41.0 (34.1-44.9) % MCV 92.1 (79.4-94.8) fl MCH 31.0 (25.6-32.2) pg MCHC 33.7 (32.2-35.5) g/dl RDW Std Deviation 40.9 (36.4-46.3) fL Plt Count 169 L (182-369) K/mm3 MPV 12.2 (9.4-12.3) fl Neut % (Auto) 52.7 (34.0-71.1) % Lymph % (Auto) 35.0 (19.3-51.7) % [place] % (Auto) 8.4 (4.7-12.5) % Eos % (Auto) 3.2 (0.7-5.8) Baso % (Auto) 0.5 (0.1-1.2) % Neut # (Auto) 2.32 (1.56-6.13) K/mm3 Lymph # (Auto) 1.54 (1.18-3.74) K/mm3 [place] # (Auto) 0.37 H (0.24-0.36) K/mm3 Eos # (Auto) 0.14 (0.04-0.36) K/mm3 Baso # (Auto) 0.02 (0.01-0.08) K/mm3 Sodium 143 (136-145) mEq/L Potassium 3.7 (3.5-5.1) mEq/L Chloride 106 (98-107) mEq/L Carbon Dioxide 31 (21-32) mEq/L Anion Gap 9.7 (5-15) BUN 9 (7-18) mg/dL Creatinine 0.7 (0.55-1.02) mg/dL Est Cr Clr Drug Dosing 90.43 mL/min Estimated GFR (MDRD) > 60 (>60) mL/min BUN/Creatinine Ratio 12.9 L (14-18) Glucose 112 H (70-99) mg/dL Calcium 8.7 (8.5-10.1) mg/dL Magnesium 2.0 (1.8-2.4) mg/dL Total Bilirubin 1.1 H (0.2-1.0) mg/dL AST 37 (15-37) U/L ALT 58 (14-59) U/L Alkaline Phosphatase 72 (46-116) U/L Total Protein 6.6 (6.4-8.2) g/dl Albumin 3.6 (3.4-5.0) g/dl Globulin 3.0 gm/dL Albumin/Globulin Ratio 1.2 (1-2) Med Orders - Current: Current Medications Acetaminophen (Acetaminophen 325 Mg Tab) 650 mg PO Q6H PRN PRN Reason: Pain (Mild 1-3)/fever Enoxaparin Sodium (Enoxaparin 40 Mg/0.4 Ml Syringe) 40 mg SUBCUT DAILY [facility] Last Admin: 08/14/20 08:39 Dose: 40 mg Documented by: Hydralazine HCl (Hydralazine 20 Mg/Ml Sdv) 10 mg IVPUSH Q4H PRN PRN Reason: Hypertension Hydrochlorothiazide (Hydrochlorothiazide 25 Mg Tab) 25 mg PO DAILY [facility] Last Admin: 08/14/20 08:39 Dose: 25 mg Documented by: Promethazine HCl 12.5 mg/ (Sodium Chloride) 50.5 mls @ 100 mls/hr IV Q6H PRN PRN Reason: Nausea/Vomiting Potassium Chloride 20 meq/Potassium Cl/Dextrose/Lact Ringer's 1,010 mls @ 80 mls/hr IV Q12H [facility] Last Admin: 08/14/20 00:02 Dose: 80 mls/hr Documented by: Oxycodone HCl (Oxycodone 5 Mg Tab) 5 mg PO Q4H PRN PRN Reason: Pain (moderate 4-6) Venlafaxine HCl (Venlafaxine 37.5 Mg Tab) 37.5 mg PO DAILY [facility] Last Admin: 08/14/20 08:39 Dose: 37.5 mg Documented by: Discontinued Medications Diatrizoate Meglum/Diatrizoate Sod (Diatrizoate Meglumine/Diatrizoate Sodium 37% 120 Ml Bottle) 120 ml PO ONETIME ONE Stop: 08/13/20 09:59 Last Admin: 08/13/20 10:35 Dose: 120 ml Documented by: Hydromorphone HCl (Hydromorphone 0.5 Mg/0.5 Ml Syringe) 0.5 mg IV Q2H PRN PRN Reason: PAIN Hydromorphone HCl (Hydromorphone 0.5 Mg/0.5 Ml Syringe) 0.5 mg IVPUSH Q2H PRN PRN Reason: Pain Sodium Chloride (Normal Saline) 1,000 mls @ 100 mls/hr IV ASDIRECTED [facility] Last Infusion: 08/13/20 06:05 Dose: 100 mls/hr Documented by: Lactated Ringer's (Ringers, Lactated) 1,000 mls @ 100 mls/hr IV ASDIRECTED [facility] Morphine Sulfate (Morphine 2 Mg/Ml Syringe) 2 mg IVPUSH Q4H PRN PRN Reason: Pain (severe 7-10) Stop: 08/14/20 08:53 Ondansetron HCl (Ondansetron 4 Mg/2 Ml Sdv) 4 mg IV Q8H PRN PRN Reason: Nausea/Vomiting - Exam Physical Findings Comments:: General: Alert, Oriented, Cooperative HEENT: Conjunctiva Clear, EOMI, Pupils Equal, Pupils Reactive Neck: Supple, Full Range of Motion Lungs: Clear to Auscultation, Normal Respiratory Effort Cardiovascular: Regular Rate, Regular Rhythm, Normal S1, Normal S2 GI/Abdominal Exam: Normal Bowel Sounds, Soft, Distended (Due to ventral hernia and obesity), Tender (resolved) Extremities: Normal Inspection, Normal Range of Motion, Non-Tender, No Pedal Edema Skin: Warm, Dry, Intact Neurological: Strength Equal Bilateral, Normal Speech, Normal Tone, Sensation Intact Neuro Extensive - Mental Status: Alert, Oriented x3, Normal Mood/Affect Psychiatric: Normal Mood
== END 2020-08-14 10:35 | disposition home or self-care (01) | DRG 254 ==
LOC: JD.ED 20:00 → JD.MS 08-13 00:27
PROVIDERS: ADMIT Internal Medicine; ATTEND Internal Medicine
DX: K43.6 Other and unspecified ventral hernia with obstruction, without gangrene (principal); E66.01 Morbid (severe) obesity due to excess calories; Z68.42 Body mass index [BMI] 45.0-49.9, adult; I10 Essential (primary) hypertension; E87.6 Hypokalemia; D69.6 Thrombocytopenia, unspecified; F32.9 Major depressive disorder, single episode, unspecified; K21.9 Gastro-esophageal reflux disease without esophagitis; Z86.718 Personal history of other venous thrombosis and embolism; Z79.01 Long term (current) use of anticoagulants; Z97.3 Presence of spectacles and contact lenses; Z98.890 Other specified postprocedural states; Z90.710 Acquired absence of both cervix and uterus
CPT/HCPCS: 36415; 43752; 74018; 74018-26; 74177; 74177-26; 80048; 80053; 83735; 85007; 85025; 85027; 93005; 99221; 99239; 99285; 99285-25; A9270-GY; J1650; J3480; J7030; Q9963; U0002

== ENCOUNTER 2020-09-17 00:01 | Observation (INO) | payer BC ==
[2020-09-17] MEDS ORDERED: Sodium Chloride 0.9% 1,000 ML IV SCH (01:15)
--- NOTE | 2020-09-17 01:16 | EDM.PDOC ---
ED HPI GENERAL MEDICAL PROBLEM - General Chief Complaint: Abdominal Pain Stated Complaint: ABDOMINAL PAIN Time Seen by Provider: 09/17/20 00:58 Source of Information: Reports: Patient, Family (), Old Records (ED visit 09/11/2020 + D/C summary 09/13/2020) History Limitations: Reports: No Limitations - History of Present Illness INITIAL COMMENTS - FREE TEXT/NARRATIVE: Mrs. Barbosa is a very pleasant 59-year-old woman who now presents to the ED with a concern that she may have a small bowel obstruction. She states that she started having gassy abdominal pain this past 09/15/2020, but that she was still having bowel movements. Yesterday, 09/16/2020, she was having bowel movements as late as the afternoon, however, she developed sharp gas pains around 13:00. They have been coming and going. She then began vomiting around 23:00. No recent fever. No urinary symptoms. She states that she took some Gas-X on both Tuesday and Tuesday, with unclear results. The patient states that her current symptoms are essentially the same as prior episodes of small bowel obstructions. Medical records finds that the patient was seen by me in this ED on 08/12/2020 with similar symptoms. Work-up included a CBC, CMP, swab for the SARS-CoV-2 virus, and a CT of the abdomen and pelvis with oral and IV contrast. Her blood work was unremarkable, and her swab for the SARS-CoV-2 virus was negative, however, the CT of the abdomen and pelvis found a distal small bowel obstruction. An NG tube was placed, and the patient was admitted to the hospital. Notes from that admission indicate that the NG tube was removed by the afternoon of 08/13/2020, and that she was discharged home on 08/14/2020. The patient tells me that she followed up with her PCP about a week after discharge, and that there were no changes made to her usual medications. Here in the ED tonight, the patient's initial BP is found to be mildly elevated at 146/67, otherwise, she is hemodynamically stable, afebrile, saturating 100% on room air. She appears to be relatively comfortable, in no acute distress. Prior to Tuesday, the patient denies having a recent fever, chills, sore throat, ear pain, nasal or sinus congestion, cough, dyspnea, chest pain, palpitations, nausea, vomiting, constipation, diarrhea, abdominal pain, urinary symptoms, recent weight gain or weight loss, recent bloody bowel movements or black bowel movements, recent joint aches, headaches, or rashes. The patient's PCP is MATTEO Gutierres. Abdominal Pain Score (Numeric/FACES): 5 - Related Data Allergies Allergy/AdvReac Type Severity Reaction Status Date / Time amoxicillin Allergy Difficulty Verified 09/17/20 00:22 Breathing Sulfa (Sulfonamide Allergy Rash Verified 09/17/20 00:22 Antibiotics) Home Meds: Home Meds Multivit-Min/Iron/Folic Acid/K [Multi For Her Softgel] 1 each PO DAILY 08/12/20 [History] Venlafaxine [Effexor] 37.5 mg PO DAILY 08/12/20 [History] hydroCHLOROthiazide [Hydrochlorothiazide] 25 mg PO DAILY 08/12/20 [History] Aspirin 325 mg PO DAILY 08/13/20 [History] Cholecalciferol (Vitamin D3) [Vitamin D3] 2,000 unit PO DAILY 08/13/20 [History] Past Medical History HEENT History: Reports: Impaired Vision (wears glasses) Cardiovascular History: Reports: Blood Clots/VTE/DVT Gastrointestinal History: Reports: Bowel Obstruction, GERD, Other (See Below) (Ventral hernia) Psychiatric History: Reports: Depression Endocrine/Metabolic History: Reports: Obesity/BMI 30+ Oncologic (Cancer) History: Reports: Uterine (s/p CTx, RTx, CHyst) - Infectious Disease History Infectious Disease History: Reports: Chicken Pox - Past Surgical History HEENT Surgical History: Reports: Oral Surgery (dental extractions) Female Surgical History: Reports: Hysterectomy (complete) Musculoskeletal Surgical History: Reports: Other (See Below) (Left bunionectomy) Social & Family History - Tobacco Use Tobacco Use Status *Q: Never Tobacco User Second Hand Smoke Exposure: No - Caffeine Use Caffeine Use: Reports: Tea - Alcohol Use Alcohol Use History: Yes Alcohol Use Frequency: Rarely - Recreational Drug Use Recreational Drug Use: No - Living Situation & Occupation Living situation: Reports: , with Spouse 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) ED ROS GENERAL - Review of Systems Review Of Systems: Comprehensive ROS is negative, except as noted in HPI. ED EXAM, GI/ABD - Physical Exam Exam: See Below Exam Limited By: No Limitations General Appearance: Alert, WD/WN, No Apparent Distress Eyes: Bilateral: Normal Appearance, EOMI Ears: Normal External Exam, Hearing Grossly Normal Nose: Normal Inspection Throat/Mouth: Normal Inspection, Normal Lips, Normal Voice, No Airway Compromise Head: Atraumatic, Normocephalic Neck: Normal Inspection, Full Range of Motion Respiratory/Chest: No Respiratory Distress, Lungs Clear, Normal Breath Sounds, No Accessory Muscle Use Cardiovascular: Normal Peripheral Pulses, Regular Rate, Rhythm, No Gallop, No JVD, No Murmur, No Rub GI/Abdominal Exam: Soft, No Organomegaly, No Distention, No Abnormal Bruit, No Mass, Tender (Mild, generalized, non-focal), Abnormal Bowel Sounds (diminished), Other (Large ventral hernia) Back Exam: Normal Inspection, Full Range of Motion, NT Extremities: Normal Inspection, Normal Range of Motion, Normal Capillary Refill Neurological: Alert, Oriented, Normal Cognition, No Motor/Sensory Deficits Psychiatric: Normal Affect Skin Exam: Warm, Dry, Intact, Normal Color, No Rash Course - Vital Signs Last Recorded V/S: Last Vital Signs Temp 36.3 C 09/17/20 00:18 Pulse 70 09/17/20 00:18 Resp 20 09/17/20 00:18 BP 146/67 H 09/17/20 00:18 Pulse Ox 100 09/17/20 00:18 - Orders/Labs/Meds Orders: Active Orders 24 hr Category Date Time Status Abdomen Pelvis w Cont [CT] Stat Exams 09/17/20 01:11 Taken Sodium Chloride 0.9% [Normal Saline] 1,000 ml Med 09/17/20 01:15 Active IV ASDIRECTED Medication Orders Sodium Chloride (Normal Saline) 1,000 mls @ 150 mls/hr IV ASDIRECTED ASHLEY Last Admin: 09/17/20 01:42 Dose: 150 mls/hr Documented by: DORIE Labs: Laboratory Tests 09/17/20 09/17/20 09/17/20 Range/Units 01:44 01:44 02:39 WBC 6.72 (3.98-10.04) K/mm3 RBC 4.52 (3.98-5.22) M/mm3 Hgb 14.1 (11.2-15.7) gm/dl Hct 41.2 (34.1-44.9) % MCV 91.2 (79.4-94.8) fl MCH 31.2 (25.6-32.2) pg MCHC 34.2 (32.2-35.5) g/dl RDW Std Deviation 40.2 (36.4-46.3) fL Plt Count 167 L (182-369) K/mm3 MPV 12.2 (9.4-12.3) fl Neutrophils % (Manual) 80 H (40-60) % Band Neutrophils % 0 (0-10) % Lymphocytes % (Manual) 15 L (20-40) % Atypical Lymphs % 0 % Monocytes % (Manual) 3 (2-10) % Eosinophils % (Manual) 1 (0.7-5.8) % Basophils % (Manual) 1 (0.1-1.2) Platelet Estimate Adequate RBC Morph Comment Normal Sodium 142 (136-145) mEq/L Potassium 3.4 L (3.5-5.1) mEq/L Chloride 103 (98-107) mEq/L Carbon Dioxide 29 (21-32) mEq/L Anion Gap 13.4 (5-15) BUN 15 (7-18) mg/dL Creatinine 0.7 (0.55-1.02) mg/dL Est Cr Clr Drug Dosing 90.43 mL/min Estimated GFR (MDRD) > 60 (>60) mL/min BUN/Creatinine Ratio 21.4 H (14-18) Glucose 134 H (70-99) mg/dL Calcium 8.7 (8.5-10.1) mg/dL Magnesium 2.1 (1.8-2.4) mg/dL Total Bilirubin 1.0 (0.2-1.0) mg/dL AST 23 (15-37) U/L ALT 40 (14-59) U/L Alkaline Phosphatase 81 (46-116) U/L Total Protein 6.8 (6.4-8.2) g/dl Albumin 3.6 (3.4-5.0) g/dl Globulin 3.2 gm/dL Albumin/Globulin Ratio 1.1 (1-2) Lipase 45 L (73-393) U/L SARS-CoV-2 RNA (JAYA) Negative (NEGATIVE) Meds: Medications Generic Name Dose Route Start Last Admin Trade Name Freq PRN Reason Stop Dose Admin Sodium Chloride 1,000 mls @ 150 mls/hr 09/17/20 01:15 09/17/20 01:42 Normal Saline IV 150 mls/hr ASDIRECTED [facility] Administration - Re-Assessments/Exams Free Text/Narrative Re-Assessment/Exam: 09/17/20 01:13 As above, the patient, who has a longstanding history of small bowel obstructions, developed generalized gas abdominal pain on Tuesday, was still having bowel movements by Tuesday, but then started developing sharp gas pains that have been coming and going since around 13:00 yesterday afternoo n, and vomiting since 23:00 last night. Her symptoms are similar to prior small bowel obstructions. On examination, she has diminished bowel sounds and generalized abdominal tenderness I have ordered a work-up that includes several blood tests and a CT of the abdomen and pelvis with oral and IV contrast. In the meantime, the patient will be given some IV fluid. She declined an offer for both pain medication and anti-nausea medication at this time. 09/17/20 02:35 The patient's CBC is remarkable for thrombocytopenia of 167,000, and is otherwise unremarkable. Her CMP is remarkable for slight hypokalemia of 3.4, and mild hyperglycemia of 134, with remainder of her CMP being unremarkable. Her magnesium level is within normal limits at 2.1. Her lipase is within normal limits at 45. 09/17/20 04:33 The patient's swab for the SARS-CoV-[address] of the abdomen and pelvis with oral and IV contrast is read by [facility] as: 1. Cholelithiasis without ancillary signs to suggest acute cholecystitis. 2. Distended contrast filled small bowel measuring up to 3.4 cm with transition zone in the large ventral hernia consistent with a partial small bowel obstruction 3. Large ventral lower abdominal wall hernia containing fat, large bowel, and minimal fluid. 09/17/20 04:37 Test results discussed with the patient and her . I recommended placement into observation so that she can continue to receive IV fluid, and, if needed, IV pain medication and IV anti-nausea medicine. The patient agreed. 09/17/20 04:[address] Murphy at 04:37. He accepted the patient for placement into observation. I will write bridge orders. Departure - Departure Time of Disposition: 04:39 Disposition: Refer to Observation Condition: Good Clinical Impression: Partial small bowel obstruction - Discharge Information *PRESCRIPTION DRUG MONITORING PROGRAM REVIEWED*: Not Applicable *COPY OF PRESCRIPTION DRUG MONITORING REPORT IN PATIENT CAITLYN: Not Applicable Referrals: Andreea Villanueva PA-C [Primary Care Provider] - Forms: ED Department Discharge Sepsis Event Note (ED) - Evaluation Sepsis Screening Result: No Definite Risk - Focused Exam Vital Signs: Vital Signs Temp Pulse Resp BP Pulse Ox 09/17/20 00:18 36.3 C 70 20 146/67 H 100 - My Orders Last 24 Hours: My Active Orders 09/17/20 01:11 Abdomen Pelvis w Cont [CT] Stat 09/17/20 01:15 Sodium Chloride 0.9% [Normal Saline] 1,000 ml IV ASDIRECTED - Assessment/Plan Last 24 Hours: My Active Orders 09/17/20 01:11 Abdomen Pelvis w Cont [CT] Stat 09/17/20 01:15 Sodium Chloride 0.9% [Normal Saline] 1,000 ml IV ASDIRECTED
[2020-09-17] MEDS ORDERED: HYDROmorphone 0.5 MG/0.5 ML Syringe IVPUSH PRN (05:59)
[2020-09-17] MEDS ORDERED: Ondansetron 4 MG/2 ML SDV IVPUSH PRN (06:00)
[2020-09-17] MEDS: Sodium Chloride 0.9% 1,000 ML IV SCH ×3 (06:09→23:21)
--- NOTE | 2020-09-17 08:25 | CT ---
CT abdomen and pelvis Technique: Multiple axial sections were obtained from above the dome of the diaphragm inferiorly through the pubic symphysis. Intravenous and oral contrast were utilized. Study was performed as an angiogram protocol. Delayed images were also obtained through the pelvis. Reconstructed coronal and sagittal images were obtained. Comparison: Prior CT abdomen and pelvis exam of 08/12/20. Findings: Visualized lung bases show nothing acute. Liver contains no focal abnormality. Gallbladder contains a fairly large gallstone. This gallstone is calcified. Spleen size is at the upper limits of normal at 12.9 cm. Adrenal glands show no nodule. Pancreas shows no discrete abnormality. Kidneys show symmetric contrast enhancement. Nonobstructing stone is noted within the lower right kidney measuring approximately 7 mm. Several slightly dilated loops of small bowel are seen. Anterior abdominal wall hernia is seen which appears to contain the cecum and distal small bowel. There is slight small bowel dilatation possibly due to minimal nonvisualized adhesion or to mild dilatation from the contrast. Abdominal aorta shows no aneurysm. No retroperitoneal adenopathy or mesenteric abnormalities are otherwise seen. No pelvic mass or adenopathy is seen. No free fluid or inflammatory change is appreciated. Bone window settings were reviewed. Degenerative change scattered within the spine is noted. No acute osseous abnormality is appreciated. Impression: 1. Anterior abdominal wall hernia which appears to contain cecum and terminal ileum. Hernia opening measures approximately 7.5 cm. 2. Slightly dilated small bowel is seen. Uncertain if this is due to a mild partial small bowel obstruction which is possibly due to nonvisualized adhesion versus prominence secondary to the contrast that was given. Please correlate with the patient's symptoms. 3. Single calcified gallstone within the gallbladder. Single nonobstructing calculus noted within the lower right kidney. Diagnostic code #3 I agree with preliminary report from [facility], finalized on 09/17/20, 5:26 AM CDT, code 1
[2020-09-17] MEDS: Hydrochlorothiazide 25 MG Tab PO SCH (08:43)
[2020-09-17] MEDS: Venlafaxine 37.5 MG Tab PO SCH (08:43)
[2020-09-17] MEDS ORDERED: Enoxaparin 40 MG/0.4 ML Syringe SUBCUT SCH (11:00)
--- NOTE | 2020-09-17 11:14 | PCM.HP.2 ---
H&P History of Present Illness - General Date of Service: 09/17/20 Admit Problem/Dx: Admission Diagnosis/Problem Admission Diagnosis/Problem Partial small bowel obstruction Source of Information: Patient, Provider History Limitations: Reports: No Limitations - History of Present Illness Initial Comments - Free Text/Narative: 59 year old female who presented to the ED with complaints of abdominal pain. Pt has a history of previous small bowel obstructions and is concerned that she may have one again. She states that she developed gassy abdminal pain two days ago but was still having bowel movements. She continued to have bowel movements yesterday but at around 1300 developed sharp gas pains. She states that the pain was a colicky type of pain. She subsequently began vomiting around 2300 last evening. As stated previously, the patient does have a history of bowel obstructions. She states that this is the third one in the last three months. She was seen in [place] for the initial episode and was treated by Dr. Saleem a surgeon there who at the time did not think that there was anything that warranted surgery. Of note, the patient does have a ventral hernia. She was told that this could be surgically repaired, however she needs to lose weight before the surgery. She reports to me that she is half ways from where she needs to be in her weight loss goal for surgery. The patient was then seen in our ED on 08/12/20 for a distal small bowel obstruction. She was subsequently admitted and managed medically with a NG tube, IV fluids and NPO status and this eventually resolved. She was visited by the surgeon manager web application, Dr. Garcia who she reports stated that nothing surgically would be done at this time and if she continued to have issues with bowel obstruction, that she could have laparoscopic surgery to free up some adhesion that are likely causing this. The patient was found to be hemodynamically stable last evening in the ED, BP was 146/67, she was afebrile and was satting 100% on room air. CT scan of the abdomen revealed: 1. Cholelithiasis without ancillary signs to suggest acute cholecystitis. 2. Distended contrast filled small bowel measuring up to 3.4 com with transition zone in the large ventral hernia consisted with a partial small bowel obstruction. 3. Large ventral lower abdominal wall hernia containing fat, large bowel, and minimal fluid. She has been admitted under observation status where she will remain NPO, she will remain on IV fluids at a maintenance rate and may have ice chips and her medications. Surgery will be consulted. Abdominal Pain Score (Numeric/FACES): 5 - Related Data Allergies/Adverse Reactions: Allergies Allergy/AdvReac Type Severity Reaction Status Date / Time amoxicillin Allergy Difficulty Verified 09/17/20 00:22 Breathing Sulfa (Sulfonamide Allergy Rash Verified 09/17/20 00:22 Antibiotics) Home Medications: Home Meds Multivit-Min/Iron/Folic Acid/K [Multi For Her Softgel] 1 each PO DAILY 08/12/20 [History] Venlafaxine [Effexor] 37.5 mg PO DAILY 08/12/20 [History] hydroCHLOROthiazide [Hydrochlorothiazide] 25 mg PO DAILY 08/12/20 [History] Aspirin 325 mg PO DAILY 08/13/20 [History] Cholecalciferol (Vitamin D3) [Vitamin D3] 2,000 unit PO DAILY 08/13/20 [History] Past Medical History HEENT History: Reports: Impaired Vision Other HEENT History: Wears glasses Cardiovascular History: Reports: Blood Clots/VTE/DVT Respiratory History: Reports: None Gastrointestinal History: Reports: Bowel Obstruction, GERD, Other (See Below) Other Gastrointestinal History: small bowel obstruction Genitourinary History: Reports: None 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: Musculoskeletal History: Reports: None Neurological History: Reports: None Psychiatric History: Reports: Depression Endocrine/Metabolic History: Reports: Obesity/BMI 30+ Hematologic History: Reports: None Immunologic History: Reports: None Oncologic (Cancer) History: Reports: Uterine Other Oncologic History: 14 years ago Dermatologic History: Reports: None - Infectious Disease History Infectious Disease History: Reports: Chicken Pox - Past Surgical History Head Surgeries/Procedures: Reports: None HEENT Surgical History: Reports: Oral Surgery GI Surgical History: Reports: Hernia, Abdominal Female Surgical History: Reports: Hysterectomy Musculoskeletal Surgical History: Reports: Other (See Below) Social & Family History - Family History Family Medical History: No Pertinent Family History Cardiac: Reports: Hypertension Endocrine/Metabolic: Reports: Diabetes, type II - Tobacco Use Tobacco Use Status *Q: Never Tobacco User Second Hand Smoke Exposure: Yes - Caffeine Use Caffeine Use: Reports: Tea Caffeine Use Comment: Patient reports she drinks about a bottle of iced tea per day - Recreational Drug Use Recreational Drug Use: No - Living Situation & Occupation Living situation: Reports: , with Spouse 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 Denies: Black Stool, Bloody Stool Genitourinary: Reports: No Symptoms Musculoskeletal: Reports: No Symptoms Skin: Reports: No Symptoms Psychiatric: Reports: No Symptoms Neurological: Reports: No Symptoms Hematologic/Lymphatic: Reports: No Symptoms Immunologic: Reports: No Symptoms Exam - Exam Exam: See Below - Vital Signs Vital Signs: Last Vital Signs Temp 98.8 F 09/17/20 08:48 Pulse 58 L 09/17/20 08:48 Resp 14 09/17/20 08:48 BP 128/65 09/17/20 08:48 Pulse Ox 97 09/17/20 08:48 Weight: 303 lb 4.8 oz - Exam Quality Assessment: DVT Prophylaxis (lovenox). No: Supplemental Oxygen General: Alert, Oriented, Cooperative HEENT: Conjunctiva Clear, Hearing Intact, Mucosa Moist & [place] Neck: Supple, Trachea Midline Lungs: Clear to Auscultation, Normal Respiratory Effort Cardiovascular: Regular Rate, Regular Rhythm GI/Abdominal Exam: Normal Bowel Sounds, Soft, Non-Tender, No Distention (Female) Exam: Deferred Rectal (Female) Exam: Deferred Back Exam: Normal Inspection Extremities: Normal Inspection, Normal Range of Motion, Non-Tender, No Pedal Edema, Normal Capillary Refill Peripheral Pulses: 2+: Radial (L), Radial (R) Skin: Warm, Dry, Intact Neuro Extensive - Mental Status: Alert, Oriented x3, Normal Mood/Affect, Normal Cognition, Memory Intact Psychiatric: Alert, Normal Affect, Normal Mood - Patient Data Lab Results Last 24 hrs: Laboratory Results - last 24 hr 09/17/20 09/17/20 09/17/20 Range/Units 01:44 01:44 02:39 WBC 6.72 (3.98-10.04) K/mm3 RBC 4.52 (3.98-5.22) M/mm3 Hgb 14.1 (11.2-15.7) gm/dl Hct 41.2 (34.1-44.9) % MCV 91.2 (79.4-94.8) fl MCH 31.2 (25.6-32.2) pg MCHC 34.2 (32.2-35.5) g/dl RDW Std Deviation 40.2 (36.4-46.3) fL Plt Count 167 L (182-369) K/mm3 MPV 12.2 (9.4-12.3) fl Neutrophils % (Manual) 80 H (40-60) % Band Neutrophils % 0 (0-10) % Lymphocytes % (Manual) 15 L (20-40) % Atypical Lymphs % 0 % Monocytes % (Manual) 3 (2-10) % Eosinophils % (Manual) 1 (0.7-5.8) % Basophils % (Manual) 1 (0.1-1.2) Platelet Estimate Adequate RBC Morph Comment Normal Sodium 142 (136-145) mEq/L Potassium 3.4 L (3.5-5.1) mEq/L Chloride 103 (98-107) mEq/L Carbon Dioxide 29 (21-32) mEq/L Anion Gap 13.4 (5-15) BUN 15 (7-18) mg/dL Creatinine 0.7 (0.55-1.02) mg/dL Est Cr Clr Drug Dosing 90.43 mL/min Estimated GFR (MDRD) > 60 (>60) mL/min BUN/Creatinine Ratio 21.4 H (14-18) Glucose 134 H (70-99) mg/dL Calcium 8.7 (8.5-10.1) mg/dL Magnesium 2.1 (1.8-2.4) mg/dL Total Bilirubin 1.0 (0.2-1.0) mg/dL AST 23 (15-37) U/L ALT 40 (14-59) U/L Alkaline Phosphatase 81 (46-116) U/L Total Protein 6.8 (6.4-8.2) g/dl Albumin 3.6 (3.4-5.0) g/dl Globulin 3.2 gm/dL Albumin/Globulin Ratio 1.1 (1-2) Lipase 45 L (73-393) U/L SARS-CoV-2 RNA (JAYA) Negative (NEGATIVE) Result Diagrams: 09/17/20 01:44 09/17/20 01:44 Sepsis Event Note - Evaluation Sepsis Screening Result: No Definite Risk - Focused Exam Vital Signs: Vital Signs Temp Temp Pulse Pulse Resp BP BP 09/17/20 08:48 98.8 F 58 L 14 128/65 09/17/20 05:22 97.9 F 56 L 16 149/76 H 09/17/20 04:54 76 16 147/75 H 09/17/20 00:18 97.4 F 70 20 146/67 H Pulse Ox 09/17/20 08:48 97 09/17/20 05:22 98 09/17/20 04:54 98 09/17/20 00:18 100 - Problem List (1) Partial small bowel obstruction SNOMED Code(s): 617093149 ICD Code: K56.600 - PARTIAL INTESTINAL OBSTRUCTION, UNSPECIFIED TO CAUSE Status: Acute Current Visit: Yes Problem List Initiated/Reviewed/Updated: Yes Orders Last 24hrs: Active Orders 24 hr Category Date Time Status Admission Status [Patient Status] [ADT] Routine ADT 09/17/20 04:50 Active Ambulate [RC] BID Care 09/17/20 05:58 Active Clear Liquid Diet [DIET] Diet 09/17/20 Dinner Active NPO [Nothing Per Oral Diet] [DIET] Diet 09/17/20 Breakfast Active Enoxaparin [Lovenox] Med 09/17/20 11:00 Ordered 40 mg SUBCUT Q12H HYDROmorphone [Dilaudid] Med 09/17/20 05:59 Active 0.5 mg IVPUSH Q2H PRN Ondansetron [Zofran] Med 09/17/20 06:00 Active 4 mg IVPUSH Q8H PRN Potassium Chloride [KCl in Water 10 MEQ/100 ML] 10 meq Med 09/17/20 11:00 Active Premix Bag 1 bag IV Q1H Sodium Chloride 0.9% [Normal Saline] 1,000 ml Med 09/17/20 06:00 Active IV ASDIRECTED Venlafaxine [Effexor] Med 09/17/20 09:00 Active 37.5 mg PO DAILY hydroCHLOROthiazide Med 09/17/20 09:00 Active 25 mg PO DAILY Resuscitation Status Routine Resus Stat 09/17/20 05:57 Ordered Medication Orders Enoxaparin Sodium (Enoxaparin 40 Mg/0.4 Ml Syringe) 40 mg SUBCUT Q12H ASHLEY Hydrochlorothiazide (Hydrochlorothiazide 25 Mg Tab) 25 mg PO DAILY [facility] Last Admin: 09/17/20 08:43 Dose: 25 mg Documented by: JAIRO Hydromorphone HCl (Hydromorphone 0.5 Mg/0.5 Ml Syringe) 0.5 mg IVPUSH Q2H PRN PRN Reason: Pain (moderate 4-6) Sodium Chloride (Normal Saline) 1,000 mls @ 125 mls/hr IV ASDIRECTED [facility] Last Admin: 09/17/20 06:09 Dose: 125 mls/hr Documented by: CARIDAD Potassium Chloride 10 meq/ (Premix) 100 mls @ 100 mls/hr IV Q1H [facility] Stop: 09/17/20 14:59 Ondansetron HCl (Ondansetron 4 Mg/2 Ml Sdv) 4 mg IVPUSH Q8H PRN PRN Reason: Nausea/Vomiting Venlafaxine HCl (Venlafaxine 37.5 Mg Tab) 37.5 mg PO DAILY [facility] Last Admin: 09/17/20 08:43 Dose: 37.5 mg Documented by: JAIRO Assessment/Plan Comment:: Pt reports that she is doing much better this morning and states that she is no longer having abdominal pain or distension. She has had two small, loose bowel movements this morning and she is passing gas. Bowel sounds are positive and active in all 4 quadrants. She denies abdominal pain with palpitation. She does have a large abdominal hernial noted. She is not having any further nausea or vomiting. I have consulted the surgeon manager web application, Dr. Mckeon and she recommends advancing the patient to clear liquids and then discharge to home. The patient should remain on clear liquids for the next 24 hours and then advance her diet as tolerated. Dr. Mckeon would gladly see her in follow up in the clinic in about a week. Potassium level is 3.4 today. She will receive 40 mEq potassium chloride IV today. All other labs are otherwise essentially unremarkable. Continue IV fluids NPO at this time; advance diet to clear liquids at supper. Repeat labs in the am Zofran for nausea and vomiting Lovenox for DVT prophylaxis - Mortality Measure Prognosis:: Good
[2020-09-17] MEDS: Potassium Chloride 10 MEQ in Premix Bag 1 BAG IV SCH ×4 (12:43→18:39)
[2020-09-17] MEDS: Enoxaparin 40 MG/0.4 ML Syringe SUBCUT SCH (21:28)
[2020-09-18] MEDS ORDERED: Potassium Chloride 20 MEQ Tab.ER PO ONE ×2 (07:41→11:00)
[2020-09-18] MEDS: Enoxaparin 40 MG/0.4 ML Syringe SUBCUT SCH (08:15)
[2020-09-18] MEDS: Venlafaxine 37.5 MG Tab PO SCH (08:16)
[2020-09-18] MEDS: Hydrochlorothiazide 25 MG Tab PO SCH (08:16)
--- NOTE | 2020-09-18 11:14 | PCM.DCSUM1 ---
<Vladimir Hayes M - Last Filed: 09/18/20 11:26> Discharge Summary - Hospital Course Free Text/Narrative:: 59 year old female who presented to the ED with complaints of abdominal pain. Pt has a history of previous small bowel obstructions and is concerned that she may have one again. She states that she developed gassy abdominal pain two days ago but was still having bowel movements. She continued to have bowel movements yesterday but at around 1300 developed sharp gas pains. She states that the pain was a colicky type of pain. She subsequently began vomiting around 2300 last evening. As stated previously, the patient does have a history of bowel obstructions. She states that this is the third one in the last three months. She was seen in [place] for the initial episode and was treated by Dr. Saleem a surgeon there who at the time did not think that there was anything that warranted surgery. Of note, the patient does have a ventral hernia. She was told that this could be surgically repaired, however she needs to lose weight before the surgery. She reports to me that she is half ways from where she needs to be in her weight loss goal for surgery. The patient was then seen in our ED on 08/12/20 for a distal small bowel obstruction. She was subsequently admitted and managed medically with a NG tube, IV fluids and NPO status and this eventually resolved. She was visited by the surgeon sales and customer relations rep, Dr. Garcia who she reports stated that nothing surgically would be done at this time and if she continued to have issues with bowel obstruction, that she could have laparoscopic surgery to free up some adhesion that are likely causing this. The patient was found to be hemodynamically stable last evening in the ED, BP was 146/67, she was afebrile and was satting 100% on room air. CT scan of the abdomen revealed: 1. Cholelithiasis without ancillary signs to suggest acute cholecystitis. 2. Distended contrast filled small bowel measuring up to 3.4 com with transition zone in the large ventral hernia consisted with a partial small bowel obstruction. 3. Large ventral lower abdominal wall hernia containing fat, large bowel, and minimal fluid. She has been admitted under observation status where she will remain NPO, she will remain on IV fluids at a maintenance rate and may have ice chips and her medications. Surgery will be consulted. Diagnosis: Stroke: No - Discharge Data Discharge Date: 09/18/20 Discharge Disposition: Home, Self-Care 01 Condition: Good - Referral to Home Health Primary Care Physician: Andreea Villanueva PA-C - Discharge Diagnosis/Problem(s) (1) Partial small bowel obstruction SNOMED Code(s): 348720088 ICD Code: K56.600 - PARTIAL INTESTINAL OBSTRUCTION, UNSPECIFIED TO CAUSE Status: Resolved Priority: High - Patient Summary/Data Hospital Course: 09/17/20 Pt reports that she is doing much better this morning and states that she is no longer having abdominal pain or distension. She has had two small, loose bowel movements this morning and she is passing gas. Bowel sounds are positive and active in all 4 quadrants. She denies abdominal pain with palpitation. She does have a large abdominal hernial noted. She is not having any further nausea or vomiting. I have consulted the surgeon sales and customer relations rep, Dr. Mckeon and she recommends advancing the patient to clear liquids and then discharge to home. The patient should remain on clear liquids for the next 24 hours and then advance her diet as tolerated. Dr. Mckeon would gladly see her in follow up in the clinic in about a week. Potassium level is 3.4 today. She will receive 40 mEq potassium chloride IV today. All other labs are otherwise essentially unremarkable. Continue IV fluids NPO at this time; advance diet to clear liquids at supper. Repeat labs in the am Zofran for nausea and vomiting Lovenox for DVT prophylaxis 09/18/20 The patient was advanced to a clear liquid diet yesterday and tolerated this well. She did have several bowel movements yesterday. Abdomen is nontender, she has not had any nausea or vomiting, and she is passing gas. Patient was given a mechanical soft breakfast and did tolerate this well. Potassium today was 3.3. She did receive a dose of 40 mEq of potassium this morning and a second dose 4 hours later. She states she is feeling much better and is ready to go home. She verbalizes that she will be following up with Dr. Garcia, general surgeon, in about a week. - Patient Instructions Diet: GI Soft/Low Residue/Low Fiber Diet, Other: Advance to a regular diet as tolerated Activity: As Tolerated Notify Provider of: Nausea and/or Vomiting - Discharge Plan *PRESCRIPTION DRUG MONITORING PROGRAM REVIEWED*: Not Applicable *COPY OF PRESCRIPTION DRUG MONITORING REPORT IN PATIENT CAITLYN: Not Applicable Home Medications: Home Meds Multivit-Min/Iron/Folic Acid/K [Multi For Her Softgel] 1 each PO DAILY 08/12/20 [History] Venlafaxine [Effexor] 37.5 mg PO DAILY 08/12/20 [History] hydroCHLOROthiazide [Hydrochlorothiazide] 25 mg PO DAILY 08/12/20 [History] Aspirin 325 mg PO DAILY 08/13/20 [History] Cholecalciferol (Vitamin D3) [Vitamin D3] 2,000 unit PO DAILY 08/13/20 [History] Oxygen Therapy Mode: Room Air Patient Handouts: Bowel Obstruction, [id number] Forms: ED Department Discharge Referrals: Surgeon, Follow up [Other] (Patient would like to make own appt. for Surgeon follow up, she believes she will go back to [facility] since he already knows here history, recommended to follow up in a week.) Andreea Villanueva PA-C [Primary Care Provider] - - Discharge Summary/Plan Comment DC Time >30 min.: No - General Info Date of Service: 09/18/20 Admission Dx/Problem (Free Text: Admission Diagnosis/Problem Admission Diagnosis/Problem Partial small bowel obstruction Subjective Update: Patient states that she is feeling much better today. She tolerated a clear liquid diet yesterday and was advanced to a mechanical soft diet at breakfast this morning and also tolerated this well. She does not have any abdominal pain, abdomen is soft and nontender, bowel sounds are positive in all 4 q uadrants, she has not had any nausea or vomiting, she did have some stools yesterday and is passing gas today. She states she is feeling well. Potassium is 3.3 today she has received 2 doses of 40 mEq potassium p.o. Functional Status: Reports: Pain Controlled, Tolerating Diet, Ambulating, Urinating - Review of Systems General: Reports: No Symptoms HEENT: Reports: No Symptoms Pulmonary: Reports: No Symptoms Cardiovascular: Reports: No Symptoms Gastrointestinal: Reports: No Symptoms Genitourinary: Reports: No Symptoms Musculoskeletal: Reports: No Symptoms Skin: Reports: No Symptoms Neurological: Reports: No Symptoms Psychiatric: Reports: No Symptoms - Patient Data Vitals - Most Recent: Last Vital Signs Temp 97.7 F 09/18/20 08:20 Pulse 56 L 09/18/20 08:20 Resp 18 09/18/20 08:20 BP 122/59 L 09/18/20 08:20 Pulse Ox 96 09/18/20 08:20 Weight - Most Recent: 138.981 kg I&O - Last 24 hours: Intake & Output 09/17/20 09/18/20 09/18/20 22:59 06:59 14:59 Intake Total 20294 Output Total 200 500 Balance 1830 1564 Lab Results - Last 24 hrs: Laboratory Results - last 24 hr 09/18/20 09/18/20 Range/Units 04:53 04:53 WBC 4.24 (3.98-10.04) K/mm3 RBC 4.36 (3.98-5.22) M/mm3 Hgb 13.6 (11.2-15.7) gm/dl Hct 40.4 (34.1-44.9) % MCV 92.7 (79.4-94.8) fl MCH 31.2 (25.6-32.2) pg MCHC 33.7 (32.2-35.5) g/dl RDW Std Deviation 40.6 (36.4-46.3) fL Plt Count 147 L (182-369) K/mm3 MPV 12.5 H (9.4-12.3) fl Neut % (Auto) 46.9 (34.0-71.1) % Lymph % (Auto) 41.3 (19.3-51.7) % Branch % (Auto) 9.0 (4.7-12.5) % Eos % (Auto) 2.4 (0.7-5.8) Baso % (Auto) 0.2 (0.1-1.2) % Neut # (Auto) 1.99 (1.56-6.13) K/mm3 Lymph # (Auto) 1.75 (1.18-3.74) K/mm3 Branch # (Auto) 0.38 H (0.24-0.36) K/mm3 Eos # (Auto) 0.10 (0.04-0.36) K/mm3 Baso # (Auto) 0.01 (0.01-0.08) K/mm3 Sodium 143 (136-145) mEq/L Potassium 3.3 L (3.5-5.1) mEq/L Chloride 107 (98-107) mEq/L Carbon Dioxide 27 (21-32) mEq/L Anion Gap 12.3 (5-15) BUN 8 (7-18) mg/dL Creatinine 0.7 (0.55-1.02) mg/dL Est Cr Clr Drug Dosing 90.43 mL/min Estimated GFR (MDRD) > 60 (>60) mL/min BUN/Creatinine Ratio 11.4 L (14-18) Glucose 102 H (70-99) mg/dL Calcium 8.4 L (8.5-10.1) mg/dL Magnesium 2.0 (1.8-2.4) mg/dL Total Bilirubin 1.1 H (0.2-1.0) mg/dL AST 26 (15-37) U/L ALT 42 (14-59) U/L Alkaline Phosphatase 74 (46-116) U/L Total Protein 6.6 (6.4-8.2) g/dl Albumin 3.5 (3.4-5.0) g/dl Globulin 3.1 gm/dL Albumin/Globulin Ratio 1.1 (1-2) Med Orders - Current: Current Medications Enoxaparin Sodium (Enoxaparin 40 Mg/0.4 Ml Syringe) 40 mg SUBCUT BID@0900,2100 [facility] Last Admin: 09/18/20 08:15 Dose: 40 mg Documented by: Hydrochlorothiazide (Hydrochlorothiazide 25 Mg Tab) 25 mg PO DAILY [facility] Last Admin: 09/18/20 08:16 Dose: 25 mg Documented by: Hydromorphone HCl (Hydromorphone 0.5 Mg/0.5 Ml Syringe) 0.5 mg IVPUSH Q2H PRN PRN Reason: Pain (moderate 4-6) Ondansetron HCl (Ondansetron 4 Mg/2 Ml Sdv) 4 mg IVPUSH Q8H PRN PRN Reason: Nausea/Vomiting Venlafaxine HCl (Venlafaxine 37.5 Mg Tab) 37.5 mg PO DAILY [facility] Last Admin: 09/18/20 08:16 Dose: 37.5 mg Documented by: Discontinued Medications Enoxaparin Sodium (Enoxaparin 40 Mg/0.4 Ml Syringe) 40 mg SUBCUT Q12H [facility] Last Admin: 09/17/20 12:45 Dose: 40 mg Documented by: Sodium Chloride (Normal Saline) 1,000 mls @ 150 mls/hr IV ASDIRECTED ASHLEY Last Admin: 09/17/20 01:42 Dose: 150 mls/hr Documented by: Sodium Chloride (Normal Saline) 1,000 mls @ 125 mls/hr IV ASDIRECTED ASHLEY Last Admin: 09/17/20 23:21 Dose: 125 mls/hr Documented by: Potassium Chloride 10 meq/ (Premix) 100 mls @ 100 mls/hr IV Q1H [facility] Stop: 09/17/20 14:59 Last Admin: 09/17/20 18:39 Dose: 100 mls/hr Documented by: Potassium Chloride (Potassium Chloride 20 Meq Tab.Er) 40 meq PO ONETIME ONE Stop: 09/18/20 07:42 Last Admin: 09/18/20 08:16 Dose: 40 meq Documented by: Potassium Chloride (Potassium Chloride 20 Meq Tab.Er) 40 meq PO ONETIME ONE Stop: 09/18/20 11:01 Last Admin: 09/18/20 10:35 Dose: 40 meq Documented by: - Exam Quality Assessment: Reports: DVT Prophylaxis. Denies: Supplemental Oxygen General: Reports: Alert, Oriented, Cooperative, No Acute Distress HEENT: Reports: Pupils Equal, Mucous Membr. Moist/[place] Neck: Reports: Supple, Trachea Midline Lungs: Reports: Clear to Auscultation, Normal Respiratory Effort Cardiovascular: Reports: Regular Rate, Regular Rhythm, No Murmurs GI/Abdominal Exam: Normal Bowel Sounds, Soft, Non-Tender, No Distention, Hernia (Female) Exam: Deferred Rectal (Female) Exam: Deferred Back Exam: Reports: Normal Inspection, Full Range of Motion Extremities: Normal Inspection, Normal Range of Motion, Non-Tender, No Pedal Edema, Normal Capillary Refill Skin: Reports: Warm, Dry, Intact Neurological: Reports: No New Focal Deficit Psy/Mental Status: Reports: Alert, Normal Affect, Normal Mood <Chase Rojas - Last Filed: 09/18/20 14:31> Discharge Summary - Referral to Home Health Primary Care Physician: Andreea Villanueva PA-C - Patient Summary/Data Hospital Course: I have seen and examined the patient independently of Vladimir Hayes CNP, and I have discussed the case with her. I have reviewed the plan of care for this patient as outlined by her. Please see orders. - Patient Data Vitals - Most Recent: Last Vital Signs Temp 36.3 C 09/18/20 11:35 Pulse 59 L 09/18/20 11:35 Resp 16 09/18/20 11:35 BP 121/72 09/18/20 11:35 Pulse Ox 97 09/18/20 11:35 I&O - Last 24 hours: Intake & Output 09/17/20 09/18/20 09/18/20 22:59 06:59 14:59 Intake Total 2030 2064 Output Total 200 500 Balance 1830 1564 Lab Results - Last 24 hrs: Laboratory Results - last 24 hr 09/18/20 09/18/20 Range/Units 04:53 04:53 WBC 4.24 (3.98-10.04) K/mm3 RBC 4.36 (3.98-5.22) M/mm3 Hgb 13.6 (11.2-15.7) gm/dl Hct 40.4 (34.1-44.9) % MCV 92.7 (79.4-94.8) fl MCH 31.2 (25.6-32.2) pg MCHC 33.7 (32.2-35.5) g/dl RDW Std Deviation 40.6 (36.4-46.3) fL Plt Count 147 L (182-369) K/mm3 MPV 12.5 H (9.4-12.3) fl Neut % (Auto) 46.9 (34.0-71.1) % Lymph % (Auto) 41.3 (19.3-51.7) % Branch % (Auto) 9.0 (4.7-12.5) % Eos % (Auto) 2.4 (0.7-5.8) Baso % (Auto) 0.2 (0.1-1.2) % Neut # (Auto) 1.99 (1.56-6.13) K/mm3 Lymph # (Auto) 1.75 (1.18-3.74) K/mm3 Branch # (Auto) 0.38 H (0.24-0.36) K/mm3 Eos # (Auto) 0.10 (0.04-0.36) K/mm3 Baso # (Auto) 0.01 (0.01-0.08) K/mm3 Sodium 143 (136-145) mEq/L Potassium 3.3 L (3.5-5.1) mEq/L Chloride 107 (98-107) mEq/L Carbon Dioxide 27 (21-32) mEq/L Anion Gap 12.3 (5-15) BUN 8 (7-18) mg/dL Creatinine 0.7 (0.55-1.02) mg/dL Est Cr Clr Drug Dosing 90.43 mL/min Estimated GFR (MDRD) > 60 (>60) mL/min BUN/Creatinine Ratio 11.4 L (14-18) Glucose 102 H (70-99) mg/dL Calcium 8.4 L (8.5-10.1) mg/dL Magnesium 2.0 (1.8-2.4) mg/dL Total Bilirubin 1.1 H (0.2-1.0) mg/dL AST 26 (15-37) U/L ALT 42 (14-59) U/L Alkaline Phosphatase 74 (46-116) U/L Total Protein 6.6 (6.4-8.2) g/dl Albumin 3.5 (3.4-5.0) g/dl Globulin 3.1 gm/dL Albumin/Globulin Ratio 1.1 (1-2) Med Orders - Current: Current Medications Discontinued Medications Enoxaparin Sodium (Enoxaparin 40 Mg/0.4 Ml Syringe) 40 mg SUBCUT Q12H [facility] Last Admin: 09/17/20 12:45 Dose: 40 mg Documented by: Enoxaparin Sodium (Enoxaparin 40 Mg/0.4 Ml Syringe) 40 mg SUBCUT BID@0900,2100 [facility] Last Admin: 09/18/20 08:15 Dose: 40 mg Documented by: Hydrochlorothiazide (Hydrochlorothiazide 25 Mg Tab) 25 mg PO DAILY [facility] Last Admin: 09/18/20 08:16 Dose: 25 mg Documented by: Hydromorphone HCl (Hydromorphone 0.5 Mg/0.5 Ml Syringe) 0.5 mg IVPUSH Q2H PRN PRN Reason: Pain (moderate 4-6) Sodium Chloride (Normal Saline) 1,000 mls @ 150 mls/hr IV ASDIRECTED [facility] Last Admin: 09/17/20 01:42 Dose: 150 mls/hr Documented by: Sodium Chloride (Normal Saline) 1,000 mls @ 125 mls/hr IV ASDIRECTED [facility] Last Admin: 09/17/20 23:21 Dose: 125 mls/hr Documented by: Potassium Chloride 10 meq/ (Premix) 100 mls @ 100 mls/hr IV Q1H [facility] Stop: 09/17/20 14:59 Last Admin: 09/17/20 18:39 Dose: 100 mls/hr Documented by: Ondansetron HCl (Ondansetron 4 Mg/2 Ml Sdv) 4 mg IVPUSH Q8H PRN PRN Reason: Nausea/Vomiting Potassium Chloride (Potassium Chloride 20 Meq Tab.Er) 40 meq PO ONETIME ONE Stop: 09/18/20 07:42 Last Admin: 09/18/20 08:16 Dose: 40 meq Documented by: Potassium Chloride (Potassium Chloride 20 Meq Tab.Er) 40 meq PO ONETIME ONE Stop: 09/18/20 11:01 Last Admin: 09/18/20 10:35 Dose: 40 meq Documented by: Venlafaxine HCl (Venlafaxine 37.5 Mg Tab) 37.5 mg PO DAILY [facility] Last Admin: 09/18/20 08:16 Dose: 37.5 mg Documented by:
== END 2020-09-18 11:55 | disposition home or self-care (01) ==
LOC: JD.ED 00:01 → JD.MS 04:50
PROVIDERS: ADMIT Internal Medicine; ATTEND Internal Medicine
DX: K56.600 Partial intestinal obstruction, unspecified as to cause (principal); K21.9 Gastro-esophageal reflux disease without esophagitis; E66.9 Obesity, unspecified; Z88.1 Allergy status to other antibiotic agents; Z88.2 Allergy status to sulfonamides; Z79.899 Other long term (current) drug therapy; Z79.82 Long term (current) use of aspirin; Z98.890 Other specified postprocedural states; Z20.822 Contact with and (suspected) exposure to COVID-19; Z68.42 Body mass index [BMI] 45.0-49.9, adult
CPT/HCPCS: 36415; 74177; 80053; 83690; 83735; 85007; 85025; 85027; 87635; 99285; A9270; J1650; J3480; J7030; 96372; 99217; 99218; G0378; U0002

== ENCOUNTER 2021-08-05 06:38 | Day surgery (SDC) | payer BC ==
[~2021-08-05 06:38] MED LIST: Acetaminophen 325 MG Tab PO SCH; Lidocaine 1%/Sod Bicarbonate in NS 8.4% 1 ML Syringe IDERM PRN; Morphine 8 MG, EPINEPHrine 0.3 MG, Ketorolac 30 MG, Sodium Chloride 0.9% 7.9 ML PRN; Pregabalin 25 MG Cap PO SCH; Propofol 200 MG/20 ML SDV ONE; Sodium Chloride 0.9% 10 ML Syringe FLUSH PRN; Sodium Chloride 0.9% 10 ML Syringe FLUSH SCH; oxyCODONE ER 10 MG TAB.ER PO SCH
[2021-08-05] MEDS ORDERED: Midazolam 1 MG/ML 2 ML SDV ONE (06:39)
[2021-08-05] MEDS: Lactated Ringers 1,000 ML IV SCH ×2 (06:39→08:55)
[2021-08-05] MEDS ORDERED: Ondansetron 4 MG/2 ML SDV IVPUSH PRN (06:42)
[2021-08-05] MEDS ORDERED: HYDROmorphone 0.5 MG/0.5 ML Syringe IVPUSH PRN (06:42)
[2021-08-05] MEDS ORDERED: fentaNYL 100 MCG/2 ML SDV IVPUSH PRN (06:42)
[2021-08-05] MEDS ORDERED: Vancomycin 2 GM in Sodium Chloride 0.9% 500 ML IV ONE (07:00)
[2021-08-05] MEDS ORDERED: ceFAZolin 1 GM Vial ONE (07:08)
[2021-08-05] MEDS ORDERED: Propofol 200 MG/20 ML SDV ONE (07:32)
[2021-08-05] MEDS: Morphine 8 MG, EPINEPHrine 0.3 MG, Ketorolac 30 MG, Sodium Chloride 0.9% 7.9 ML PRN ×8 (07:42→07:58)
[2021-08-05] MEDS: Vancomycin 1 GM SDV ONE ×2 (07:42→08:04)
[2021-08-05] MEDS ORDERED: Bupivacaine 0.25% 10 ML SDV ONE ×2 (08:25→08:27)
[2021-08-05] MEDS ORDERED: oxyCODONE 5 MG Tab PO PRN (08:56)
== END 2021-08-05 11:55 | disposition home or self-care (01) ==
LOC: JD.SDS 06:38
PROVIDERS: ATTEND Orthopaedic Surgery
DX: M17.12 Unilateral primary osteoarthritis, left knee (principal); F32.A Depression, unspecified; R60.0 Localized edema; H54.7 Unspecified visual loss; K21.9 Gastro-esophageal reflux disease without esophagitis; E66.01 Morbid (severe) obesity due to excess calories; Z68.41 Body mass index [BMI] 40.0-44.9, adult; Z88.0 Allergy status to penicillin; Z88.2 Allergy status to sulfonamides; Z79.899 Other long term (current) drug therapy; Z79.01 Long term (current) use of anticoagulants; Z79.82 Long term (current) use of aspirin; Z86.718 Personal history of other venous thrombosis and embolism
CPT/HCPCS: 0055T; 27447; 73560; 97110; 97116; 97161; A9270; C1713; C1776; J0171; J0690; J1885; J2250; J2270; J2704; J3370; J3490; J7120; 76942